=== PATIENT | female | born 1970 | race Caucasian/White ===

== ENCOUNTER → 2017-12-29 15:49 | Outpatient (CLI) | payer OTHER, SELFPAY ==
[2017-12-29 18:33] LABS: Follicle Stimulating Hormone 6.5 mIU/mL; Thyroid Stim Hormone (TSH) 1.08 uIU/mL (0.358-3.74)
[2018-01-01 08:30] LABS: HPV Reflexed? NOT INDICATED
== END ==
PROVIDERS: Visit Provider Obstetrics & Gynecology
DX: N91.2 Amenorrhea, unspecified (principal); Z12.4 Encounter for screening for malignant neoplasm of cervix
CPT/HCPCS: 36415; 83001; 84443; 88175; G0145

== ENCOUNTER → 2019-12-14 | Outpatient (CLI) | payer OTHER, SELFPAY ==
[2016-04-11 12:42] VITALS: BMI 28.3
[2019-12-21 04:52] LABS: HPV APTIMA, High Risk Negative (Negative); HPV Reflexed? NOT INDICATED
== END | disposition home or self-care (01) ==
LOC: LABSPEC 16:37
PROVIDERS: PCP Student in an Organized Health Care Education/Training Program; Visit Provider Student in an Organized Health Care Education/Training Program
DX: Z12.4 Encounter for screening for malignant neoplasm of cervix (principal)
CPT/HCPCS: 88175; G0145

== ENCOUNTER 2023-01-07 11:46 | Observation (INO) | payer OTHER, SELFPAY ==
[2023-01-07] VITALS (7 sets, daily range): BP systolic 118–163; BP diastolic 72–92; PULSE 66–83; RESP 16–20; TEMP 35.9–36.9; O2SAT 97–100; BMI 32.2; BMI 30.9
--- NOTE | 2023-01-07 13:11 | CT_ITS ---
STUDY: CT BRAIN WITHOUT CONTRAST REASON FOR EXAM: Female, 52 years old. JONES, elevated BP RADIATION DOSAGE (If Supplied By Facility): CTDIvol = ( 44.99 ) mGy, DLP = ( 762.36 ) mGycm TECHNIQUE: Transaxial CT imaging of the brain was performed without administration of intravenous contrast material. Individualized dose optimization techniques were used for this CT. COMPARISON: Comparison is made with prior study April 11, 2016. FINDINGS: Normal soft tissue structures. Normal calvarium. Normal size ventricles and extra-axial spaces for the patient''s age. Normal white matter tracts of the cerebral hemispheres. Normal basal ganglia and thalami. Normal brainstem. Normal cerebellum. There is no intracranial hemorrhage. There are no findings of an acute ischemic infarction. Atherosclerotic plaque formation of the cavernous portions of the internal carotid arteries bilaterally. Normal visualized paranasal sinuses. CT/Brain/Head without Contrast IMPRESSION: Normal unenhanced CT scan of the brain. Electronically Signed: Marcio Montalvo MD at 14:35 EDT ,
--- NOTE | 2023-01-07 13:12 | EKG12_ITS ---
Test Reason : HTN Blood Pressure : / mmHG Vent. Rate : 083 BPM Atrial Rate : 083 BPM P-R Int : 142 ms QRS Dur : 072 ms QT Int : 360 ms P-R-T Axes : 057 036 -05 degrees QTc Int : 423 ms Normal sinus rhythm T wave abnormality, consider inferior ischemia Abnormal ECG Confirmed by FAINA GLOVER, MARIBELL ([id number]), supervising editor news reel ANNMARIE BARRAGAN ([id number]) on 01/14/2023 10:10:18 AM Referred By: Confirmed By:EZIO EISENBERG MD
[2023-01-07 13:37] LABS: Absolute Lymphocyte Count 2.18 X10^3/uL (0.83-4.51); Basophil# 0.05 X10^3/uL; Basophil% 0.7 % (0-1); Eosinophil# 0.11 X10^3/uL; Eosinophils% 1.6 % (0-5); Hematocrit 42.3 % (37-47); Hemoglobin 13.9 g/dL (12.0-15.0); Lymphocyte # 2.18 X10^3/ul (0.83-4.51); Lymphocyte % 31.2 % (19-41); Mean Corp Hgb Conc 32.9 g/dL (32-36); Mean Corpuscular Hgb 26.2 pg (27.0-32.0); Mean Corpuscular Volume 79.7 fL (81-99); Mean Platelet Vol. 10.3 fl (6.2-12.0); Monocyte% 8.6 % (0-10); NRBC Flagged by Analyzer 0 % (0-5); Neutrophil # 4.03 X10^3/uL (2.7-7.7); Neutrophil % 57.6 % (47-70); Platelet Count 315 K/mm3 (150-450); RBC Distribution Width SD 40.4 fl (35.1-43.9); Red Blood Count 5.31 M/mm3 (4.2-5.4)
[2023-01-07 13:54] LABS: Anion Gap 3 (5-15); BUN 16 mg/dL (7-18); BUN/Creat Ratio 14.5 RATIO (10-20); Calcium,Total 9.3 mg/dL (8.5-10.1); Chloride 106 mmol/L (98-107); EST Glomerular Filtration Rate 55 mL/min (>60); Est Glom Filt Rate - Afr Amer 67 mL/min (>60); Glucose 102 mg/dL (74-106); Potassium 3.6 mmol/L (3.5-5.1); Sodium Level 137 mmol/L (136-145); Troponin-I HS 80 pg/mL (3.0-54.0)
--- NOTE | 2023-01-07 14:16 | RAD_ITS ---
STUDY: X-RAY CHEST REASON FOR EXAM: Female, 52 years old. Elevated BP TECHNIQUE: Single AP portable view of the chest. COMPARISON: None. FINDINGS: EKG electrodes are seen. The lungs are clear and expanded. Scattered calcified granulomas. There is no demonstrated pleural abnormality. Normal size heart. Normal mediastinum and adelaida. Normal visualized pulmonary arteries. There is atherosclerotic calcification of the aortic arch with tortuosity. There are degenerative changes of the visualized thoracic spine. Normal visualized ribs, clavicles, and shoulders. There is no demonstrated abnormality of the visualized soft tissue structures of the upper abdomen. RAD/Chest 1 View (Portable) IMPRESSION: No acute abnormality is seen. Electronically Signed: Marcio Montalvo MD at 15:01 EDT ,
[2023-01-07] MEDS: amLODIPine 5 MG Tablet PO (14:47)
[2023-01-07] MEDS: Aspirin 325 MG Tablet PO (14:47)
--- NOTE | 2023-01-07 15:08 | HP.PCM.HOS_ITS ---
HPI - General General Date of Admission: 01/07/23 Date of Service: 01/07/23 Chief Complaint: Elevated BP, headaches, vision changes, near syncope. HPI Narrative The patient is a 52 y/o F w/ PMHx: Hypertension who presents to the [facility] ED on with history of ongoing left-sided sharp stabbing headache rated 10 out of 10 in severity noted to be pretty continuous over the last 3 days with no sound or light sensitivity with history of chronic headaches prior to start of hypertensive regimen but she is since improved and this is the first time she is really had headaches since with associated lightheadedness, dizziness in addition to shortness of breath even at rest with onset at approximately 7:30 AM on day of presentation transient left-sided vision blurring which lasted approximately 30 to 45 minutes and then resolved but given the symptoms and BP check at home which was elevated per her at 148/85 prompted ED evaluation. Work- up in the ED included CBC with WBC 7.0, hemoglobin 13.9, platelet 315 without marked shift, BMP with BUN/creatinine 16/1.0, troponin initial 80, CT of the brain with no acute intracranial findings, chest x-ray with no acute cardiopulmonary findings, EKG SR with no acute evidence of ischemia. In the ED patient ministered a full-strength aspirin therapy and Norvasc 5 mg p.o. x1. [facility] Medical History (Updated 01/07/23 @ 20:[address] Cheri Munroe MD) Hypertension Obesity Home Medications lisinopril 10 mg tablet (Prinivil) 10 mg PO DAILY 04/11/16 [History Last Taken 04/11/16 10] Allergy/AdvReac Type Severity Reaction Status Date / Time aspirin AdvReac Upset Verified 01/07/23 11:46 Stomach Family History (Updated 01/07/23 @ 20:[address] Cheri Munroe MD) Mother Hypertension Cancer Father History of GI bleed Other Heart disease Surgical History (Updated 01/07/23 @ 20:[address] Cheri Munroe MD) Status post left breast lumpectomy Social History (Updated 01/07/23 @ 20:[address] Cheri Munroe MD) household members: spouse Smoking Status: Never smoker alcohol intake: current alcohol intake frequency: holidays/special occasions only substance use type: does not use ROS ROS Narrative Admission Review of Systems: CONSTITUTIONAL: No weight loss, fever, chills, + weakness or fatigue. HEENT: + Transient left-sided vision blurring, left-sided headache. Eyes: No visual loss, double vision or yellow sclerae. Ears, Nose, Throat: No hearing loss, sneezing, congestion, runny nose or sore throat. SKIN: No rash or itching, lesions, wounds. CARDIOVASCULAR: + Lightheadedness, dizziness. No chest pain, chest pressure or chest discomfort, palpitations, edema, orthopnea, syncopal events. RESPIRATORY: + shortness of breath. No cough or sputum, wheezing, hemoptysis. GASTROINTESTINAL: No anorexia, nausea, vomiting or diarrhea, abdominal pain, melena, BRBPR. GENITOURINARY: No dysuria, frequency, urgency or retention. NEUROLOGICAL:+ headache, dizziness, transient left eye vision blurring. Syncope, paralysis, ataxia, numbness or tingling in the extremities, focal weakness, change in bowel or bladder control, seizure. MUSCULOSKELETAL: No muscle, back pain, joint pain or stiffness. HEMATOLOGIC: No anemia, bleeding or bruising. LYMPHATICS: No enlarged nodes. No history of splenectomy. PSYCHIATRIC: No history of depression or anxiety. ENDOCRINOLOGIC: No reports of sweating, cold or heat intolerance. No polyuria or polydipsia. ALLERGIES: No history of asthma, hives, eczema or rhinitis. Vital Signs Vital Signs Vital Signs: 01/07/23 11:46 01/07/23 13:31 01/07/23 13:34 Temperature 96.7 F L Temperature Source Temporal Pulse Rate 83 78 Respiratory Rate 18 Respiratory Effort Normal Non-Labored Respiratory Pattern Normal Blood Pressure 163/92 H 144/85 H Blood Pressure Mean 115 104 Pulse Ox 100 Oxygen Delivery Method Room Air 01/07/23 15:00 Temperature Temperature Source Pulse Rate 73 Respiratory Rate 18 Respiratory Effort Respiratory Pattern Blood Pressure 133/83 H Blood Pressure Mean 99 Pulse Ox 100 Oxygen Delivery Method Room Air Physical Exam Narrative Physical Examination: General: Awake, alert, oriented x 3 and cooperative, seated upright in the ED bed in no apparent distress, notes continued resolution of prior vision changes. Skin: Normal color, normal turgor, no icterus, no cyanosis. HEENT: AT/NC, EOMI, PERRLA, mildly dry MM, no carotid bruits or JVD noted. Lungs: CTA bilaterally, moderate effort, mild decrease BL bases, no rales, ronchi or wheezing. Heart: Regular rate and rhythm; no gallop, rub audible. Abdomen: Soft, obese, NTTP, ND, normal BS, no HSM. Extremities: No cyanosis, clubbing, or edema. Neurological: Patient awake, alert, oriented as noted, cognitive function intact; pupils equally reactive to light and accommodation, cranial nerves II- XII grossly normal, moving all 4 extremities, no focal deficits, strength preserved, vision currently appropriate bilaterally, HTS/FTN appropriate, negative babinski. Psychiatric: Affect appears fatigued otherwise normal, no acute evidence of depressive or anxiety feelings. Results Lab / Micro Data 01/07/23 13:30 01/07/23 13:30 Labs: Laboratory Results - last 24 hr 01/07/23 13:30: WBC 7.0, RBC 5.31, Hgb 13.9, Hct 42.3, MCV 79.7 L, MCH 26.2 L, MCHC 32.9, RDW Std Deviation 40.4, RDW Coeff of Evelyn 14.0, Plt Count 315, MPV 10.3, Immature Gran % (Auto) 0.300, Neut % (Auto) 57.6, Lymph % (Auto) 31.2, Dare % (Auto) 8.6, Eos % (Auto) 1.6, Baso % (Auto) 0.7, Absolute Neuts (auto) 4.0, Absolute Lymphs (auto) 2.18, Nucleated RBC % 0, Sodium 137, Potassium 3.6, Chloride 106, Carbon Dioxide 28.0, Anion Gap 3 L, BUN 16, Creatinine 1.10 H, Est GFR (MDRD) Af Amer 67, Est GFR (MDRD) Non-Af 55 L, BUN/Creatinine Ratio 14.5, Glucose 102, Calcium 9.3, Troponin I High Sens 80 H Radiology Impression Brain CT 01/07/23 13:11 IMPRESSION: Normal unenhanced CT scan of the brain. Electronically Signed: Marcio Montalvo MD at 14:35 EDT , Chest X-Ray 01/07/23 14:16 IMPRESSION: No acute abnormality is seen. Electronically Signed: Marcio Montalvo MD at 15:01 EDT , Assessment & Plan Assessment/Plan (1) Vision changes: PLAN: Plan The patient is a 52 y/o F w/ PMHx: Hypertension who presents to the [facility] ED on 01/07/23 with history of ongoing left-sided sharp stabbing headache rated 10 out of 10 in severity noted to be pretty continuous over the last 3 days with no sound or light sensitivity with history of chronic headaches prior to start of hypertensive regimen but she is since improved and this is the first time she is really had headaches since with associated lightheadedness, dizziness in addition to shortness of breath even at rest with onset at approximately 7:30 AM on day of presentation transient left-sided vision blurring which lasted approximately 30 to 45 minutes and then resolved but given the symptoms and BP check at home which was elevated per her at 148/85 prompted ED evaluation. #1. Transient vision changes concerning for TIA, resolved: Will admit to PCU, will obtain MRI Brain, will obtain CTA head and Neck, ECHO, PT/OT/Speech/Nutrition evaluation per protocol. Given current resolution of symptoms will continue hypertensive regimen, maintain on asa, at least moderate dose statin w/ AM FLP, fall precautions. Mag, TSH, FLP, HgbA1c requested. Maintain on fall and aspiration precautions. Once work-up obtained low threshold to obtain Neurology consultation. #2. Recent lightheadedness, dyspnea, dizziness, elevated blood pressures above baseline with associated headache and has noted transient vision changes, hypertensive urgency with indeterminate cardiac enzyme: EKG in ED SR with no acute evidence of ischemia, CXR w/ no acute cardiopulmonary finding, initial trop 80. Will place on a monitored bed to assure no acute myocardial infarction with serial cardiac enzymes and EKGs. Mag pending. FLP in AM. Will continue to trend enzymes and if worsens/rises would opt to consult cardiology. ECHO requested. BNP ordered. To be cautious will place on heparin drip until trending noted and if his artery reaches smooth or decreases may de-escalate off. ASA, NG, morphine. #3. Suspected acute mild acute renal insufficiency associated with #1, #2: Admission BUN/creatinine 16/1.10, GFR 55, previously was in the 70 range however unclear if this was an acute situation, will judiciously hydrate and repeat CMP in AM. #4. Obesity: Weight loss and lifestyle changes encouraged. #5. DVT prophylaxis: Heparin drip as noted. #6. CODE STATUS: Full Code. Charges/Coding Visit Charges Inpatient E&M: 10560 Init Hosp L3
--- NOTE | 2023-01-07 15:38 | EDS_ITS ---
HPI History of Present Illness Chief Complaint: Hypertension [facility] Medical History (Updated 01/07/23 @ 13:33 by Claudia Fortune) Hypertension Home Medications lisinopril 10 mg tablet (Prinivil) 10 mg PO DAILY 04/11/16 [History Last Taken 04/11/16 10] Allergy/AdvReac Type Severity Reaction Status Date / Time aspirin AdvReac Upset Verified 01/07/23 11:46 Stomach Social History Smoking Status: Never smoker EXAM Physical Exam Const Vital Signs: 01/07/23 11:46 01/07/23 13:31 01/07/23 13:34 Temperature 96.7 F L Temperature Source Temporal Pulse Rate 83 78 Respiratory Rate 18 Respiratory Effort Normal Non-Labored Respiratory Pattern Normal Blood Pressure 163/92 H 144/85 H Blood Pressure Mean 115 104 Pulse Ox 100 Oxygen Delivery Method Room Air 01/07/23 15:00 Temperature Temperature Source Pulse Rate 73 Respiratory Rate 18 Respiratory Effort Respiratory Pattern Blood Pressure 133/83 H Blood Pressure Mean 99 Pulse Ox 100 Oxygen Delivery Method Room Air MDM MDM MDM Narrative Medical decision making narrative: HISTORY OF PRESENT ILLNESS: 52-year-old female here with headache and visual changes notes elevated blood pressure. States she takes 20 mg of lisinopril and is taking a total of 40 mg today. Patient denies sudden onset or thunderclap headache, denies maximal intensity within 1 minute, vomiting, neck pain, stiffness, changes in vision, fever, history malignancy, syncope, or seizures associated with headache. No chest pain, no shortness of breath. No urinary complaints. REVIEW OF SYSTEMS: Pertinent positives: Headache, visual disturbance Pertinent negatives: Chest pain, shortness of breath PHYSICAL EXAM: Nursing triage notes reviewed, Vital signs reviewed Constitutional: please see mdm HENT: MMM Eyes: Pupils equal round and reactive to light, Extraocular muscles intact, visual subramanian intact, Neck: No stridor, no JVD, full neck ROM Lungs: Clear to auscultation, No wheezing or rales. No increased work of breathing, no conversational dyspnea, no accessory muscle use, no nasal flaring. No respiratory distress noted Heart: Regular rate and rhythm, No murmurs, No rubs and No gallops, 2+ distal pulses (radial, femoral, posterior tibial) in all extremities Abdomen: Soft, there is no tenderness, rigidity, rebound or guarding, no obvious peritoneal signs, no palpable pulsatile abdominal masses, no auscultated abdominal bruit : No CVAT Extremities: No edema Neuro: No focal neurological deficits, cranial nerves II through XII intact, 5/5 strength in all extremities. Intact sensation to light touch in all extremities, 2+ reflexes bilateral patella tendons. Normal gait. No ataxia. Skin: No rash or lesions noted MEDICAL DECISION MAKING: Chief Complaint: Headache External records reviewed: No recent ED visits or hospitalizations Factors affecting care: Hypertension Social determinants of health: none History obtained from others: The patient's Consults: Internal medicine (Dr. Munroe) ALL IMAGES (IF OBTAINED) HAVE BEEN PERSONALLY REVIEWED AND INTERPRETED BY MYSELF. EKG with normal sinus rhythm, normal axis, normal intervals, no STEMI Initial troponin elevated concerning for myocardial ischemia CBC without leukocytosis, severe anemia, no thrombocytopenia. BMP without evidence of significant electrolyte abnormalities, no anion gap, no acute kidney injury. I have personally reviewed the patient's chest x-ray. Chest x-ray is unremarkable for pulmonary edema, pneumothorax, pneumonia or focal cardiopulmonary abnormality. CT scan of the head showed no evidence of intracranial abnormality MDM Narrative: Patient was initially mildly hypertensive. She had no focal neurologic deficits. Concern for endorgan damage given report of high blood pressure. Obtained a broad lab and imaging work-up I considered the following differential diagnosis: [Kidney dysfunction ICH, ACS, Labs images remarkable for elevated troponin. EKG was nonischemic. Patient was given aspirin for mortality benefit Norvasc for blood pressure control admitted for respiratory modification and further evaluation of elevated troponin The patient and/or family, caregivers express understanding. The patient and/or family, caregivers agrees with the plan. Shared decision making: I will have a discussion with the patient and or visitors regarding risk/benefits of further testing or admission. They will be made aware of of the risk/benefits inherent in this decision they will be given the opportunity to voice understanding. Total critical care time today provided was at least 0 minutes. This excludes separately billable procedures. Critical care time (if documented) is secondary to the patient having high probability of clinically significant/life threatening deterioration in the patient's condition which required my urgent intervention. Impression: 1. Hypertensive urgency 2. Elevated troponin 3. History of hypertension Dispo: Admit to floor Lab Data Labs: Laboratory Results - last 24 hr 01/07/23 13:30 WBC 7.0 RBC 5.31 Hgb 13.9 Hct 42.3 MCV 79.7 L MCH 26.2 L MCHC 32.9 RDW Std Deviation 40.4 RDW Coeff of Evelyn 14.0 Plt Count 315 MPV 10.3 Immature Gran % (Auto) 0.300 Neut % (Auto) 57.6 Lymph % (Auto) 31.2 [place] % (Auto) 8.6 Eos % (Auto) 1.6 Baso % (Auto) 0.7 Absolute Neuts (auto) 4.0 Absolute Lymphs (auto) 2.18 Nucleated RBC % 0 Sodium 137 Potassium 3.6 Chloride 106 Carbon Dioxide 28.0 Anion Gap 3 L BUN 16 Creatinine 1.10 H Est GFR (MDRD) Af Amer 67 Est GFR (MDRD) Non-Af 55 L BUN/Creatinine Ratio 14.5 Glucose 102 Calcium 9.3 Troponin I High Sens 80 H Radiography Diagnostic Testing: Clinical Impression(s) from Imaging Studies Brain CT 01/07/23 13:11 IMPRESSION: Normal unenhanced CT scan of the brain. Electronically Signed: Marcio Montalvo MD at 14:35 EDT , Chest X-Ray 01/07/23 14:16 IMPRESSION: No acute abnormality is seen. Electronically Signed: Marcio Montalvo MD at 15:01 EDT , Discharge Plan Triage Chief Complaint: Hypertension Other Complaint: Headache ED Provider: Tito Lobo Dx/Rx/DC Orders Prescriptions: No Action lisinopril [Prinivil] 10 MG tablet 10 mg PO DAILY Primary Care Provider: Fredrick Fleming Referrals: Fredrick Fleming DO [Primary Care Provider] - Disposition Disposition: [facility]
--- NOTE | 2023-01-07 16:42 | CT_ITS ---
We are attempting to reach an attending provider to discuss findings. An addendum with communication details will be sent when the communication is complete. EXAM: CT ANGIOGRAPHY HEAD AND NECK WITH INTRAVENOUS CONTRAST CLINICAL INDICATION: Neuro deficit, acute, stroke suspected TECHNIQUE: [place] [facility] [place]/head and neck CT angiography protocol performed with intravenous contrast. This CT exam was performed using one or more of the following dose reduction techniques: automated exposure control, adjustment of the mA and/or kV according to patient size, and/or use of iterative reconstruction technique. MIP reconstructed images were created and reviewed. CONTRAST: IV 100mL [id number] COMPARISON: No relevant prior studies available. FINDINGS: HEAD: RIGHT ANTERIOR CEREBRAL ARTERY: Unremarkable. No significant stenosis at the visualized segments. Hypoplastic or aplastic anterior communicating artery. No aneurysm. RIGHT MIDDLE CEREBRAL ARTERY: Unremarkable. No significant stenosis at the visualized segments. No aneurysm. RIGHT POSTERIOR CEREBRAL ARTERY: origin of the right posterior cerebral artery with absent P1 segment and robust right posterior communicating artery. RIGHT INTRACRANIAL INTERNAL CAROTID ARTERY: Unremarkable. No significant stenosis. No dissection or occlusion. RIGHT INTRACRANIAL VERTEBRAL ARTERY: Unremarkable. No significant stenosis. No dissection or occlusion. LEFT ANTERIOR CEREBRAL ARTERY: Unremarkable. No significant stenosis at the visualized segments. No aneurysm. LEFT MIDDLE CEREBRAL ARTERY: Unremarkable. No significant stenosis at the visualized segments. No aneurysm. LEFT POSTERIOR CEREBRAL ARTERY: origin of the left posterior cerebral artery with absent P1 segment and robust left posterior communicating artery. LEFT INTRACRANIAL INTERNAL CAROTID ARTERY: Unremarkable. No significant stenosis. No dissection or occlusion. LEFT INTRACRANIAL VERTEBRAL ARTERY: Unremarkable. No significant stenosis. No dissection or occlusion. BASILAR ARTERY: Unremarkable. No significant stenosis. No aneurysm. OTHER VASCULATURE: No vascular malformation. NECK: RIGHT COMMON CAROTID ARTERY: Unremarkable. No significant stenosis. No dissection or occlusion. RIGHT EXTRACRANIAL INTERNAL CAROTID ARTERY: Unremarkable. No significant stenosis. No dissection or occlusion. RIGHT EXTERNAL CAROTID ARTERY: Unremarkable. No occlusion. RIGHT EXTRACRANIAL VERTEBRAL ARTERY: Unremarkable. No significant stenosis. No dissection or occlusion. LEFT COMMON CAROTID ARTERY: Unremarkable. No significant stenosis. No dissection or occlusion. LEFT EXTRACRANIAL INTERNAL CAROTID ARTERY: Unremarkable. No significant stenosis. No dissection or occlusion. LEFT EXTERNAL CAROTID ARTERY: Unremarkable. No occlusion. LEFT EXTRACRANIAL VERTEBRAL ARTERY: Unremarkable. No significant stenosis. No dissection or occlusion. BRACHIOCEPHALIC AND SUBCLAVIAN ARTERIES: Unremarkable as visualized. No occlusion or significant stenosis. LUNG APICES: Unremarkable as visualized. HEAD and NECK: BONES/JOINTS: Unremarkable. No discrete lytic or blastic abnormalities. SOFT TISSUES: Unremarkable. CAROTID STENOSIS REFERENCE USING NASCET CRITERIA: % ICA stenosis = (1 - narrowest ICA diameter/diameter of distal cervical ICA) x 100. Mild - <50% stenosis. Moderate - 50-69% stenosis. Severe - 70-94% stenosis. Near occlusion - 95-99% stenosis. Occluded - 100% stenosis. CT/STROKE CTA Head AND Neck W/Con IMPRESSION: No acute findings in the arteries of the head and neck. Electronically Signed: Winsome Khan MD at 17:29 EDT Reading Location ID and State: [id number] / Tel , Service support ,
[2023-01-07 16:58] LABS: International Normalized Ratio 0.9; Prothrombin Time (Protime)PT. 12.2 SECONDS (11.7-14.9)
[2023-01-07 17:04] LABS: Magnesium 2.3 mg/dL (1.6-2.6)
[2023-01-07 17:08] LABS: BNP,B-Type NATRIURETIC PEPTIDE 15.6 pg/mL (0-100)
--- NOTE | 2023-01-07 18:58 | MRI_ITS ---
EXAM: MR HEAD WITHOUT INTRAVENOUS CONTRAST CLINICAL INDICATION: CVA, L SIDED STABBING HEADACHE, VISUAL CHANGE, INCREASED BP, L BLURRED VISION TECHNIQUE: Multiplanar and multisequence MR images of the brain were obtained without intravenous contrast. COMPARISON: CT brain 01/07/2023 FINDINGS: BRAIN AND EXTRA-AXIAL SPACES: Increased T2 signal intensity within the cerebral white matter suggestive of chronic microvascular change. No intra- or extra-axial hemorrhage. No evidence of acute infarct. No intracranial mass or mass effect. There is preservation of the morris/white matter interface. Posterior fossa structures are unremarkable. Ventricles are appropriate for age. No hydrocephalus. Basal cisterns are patent. SELLA: Normal. Normal sella turcica, pituitary gland, infundibular stalk, optic chiasm and hypothalamus. AUDITORY SYSTEM: Normal. The internal auditory canals are patent. BONES/JOINTS: Intact calvarium. SINUSES: Unremarkable as visualized. Clear. MASTOID AIR CELLS: Unremarkable as visualized. Clear. ORBITS: Unremarkable as visualized. Both globes, extraocular muscles, optic nerves and retrobulbar fat appear unremarkable. VASCULATURE: Unremarkable as visualized. Normal flow voids in the major intracranial circulation. MRI/Brain without Contrast IMPRESSION: No acute intracranial abnormality. Electronically Signed: Pelon Perez MD at 13:23 EDT ,
--- NOTE | 2023-01-07 18:58 | ECHOD_ITS ---
Reason For Study: TIA/CVA Procedure This was a 2D Doppler, Color Flow transthoracic echocardiogram. Exam performed portable in patient room. Left Ventricle Normal LV size. The estimated ejection fraction is 70 %. No evidence for diastolic dysfunction. No regional wall motion abnormalities noted. Right Ventricle Normal RV size. Normal systolic function. Atria Normal left atrium. Normal right atrium. No doppler evidence for ASD. Bubble contrast study negative for right to left interatrial shunt. Mitral Valve There is no mitral valve stenosis. No mitral valve insufficiency. Tricuspid Valve There is no tricuspid stenosis. Trivial tricuspid valve insufficiency. Pulmonary artery systolic pressure is 35-40 mmHg. Aortic Valve Trisinus/trileaflet aortic valve. There is no aortic stenosis. No aortic valve insufficiency. Pulmonic Valve There is no pulmonic valvular stenosis. No pulmonic valve insufficiency. Great Vessels Normal aortic root. Pericardium/Pleural No pericardial effusion. Medication Performed a rapid injection of agitated mix of 9 cc saline and 1cc air to assess for atrial septal defect. MMode/2D Measurements & Calculations LVIDd: 3.9 cm IVSd: 0.73 cm Ao root diam: 3.2 cm LVIDs: 2.7 cm LVPWd: 0.93 cm FS: 31.5 % LAV(MOD-bp): 25.3 ml LVAd ap4: 16.1 cm2 SV(MOD-sp4): 20.8 ml LAV(MOD-bp) Indexed: 15.3 ml/m2 LVLd ap4: 6.6 cm LAV(MOD-sp2): 23.8 ml EDV(MOD-sp4): 32.6 ml LAV(MOD-sp4): 27.2 ml EDV(sp4-el): 33.1 ml LVAs ap4: 8.0 cm2 LVLs ap4: 5.2 cm ESV(MOD-sp4): 11.8 ml ESV(sp4-el): 10.6 ml EF(MOD-sp4): 63.7 % EF(sp4-el): 68.1 % SV(sp4-el): 22.5 ml LA A4 area: 12.9 cm2 LA dimension(2D): 3.3 cm RA A4 area: 15.5 cm2 TAPSE: 2.6 cm Time Measurements MV dec time: 0.19 sec Doppler Measurements & Calculations MV E max steven: 81.1 cm/sec Lat Peak E' Steven: 14.5 cm/sec Med Peak E' Steven: 12.3 cm/sec MV A max steven: 67.8 cm/sec E/E' lat: 5.6 E/E' med: 6.6 MV E/A: 1.2 MV V2 max: 91.8 cm/sec MV dec slope: 438.3 cm/sec2 Ao V2 max: 152.4 cm/sec MV max P.4 mmHg Ao max P.3 mmHg MV V2 mean: 54.1 cm/sec Ao V2 mean: 103.3 cm/sec MV mean P.3 mmHg Ao mean P.0 mmHg MV V2 VTI: 30.6 cm Ao V2 VTI: 31.3 cm AV (velocity ratio): 0.85 LV V1 max: 126.9 cm/sec PA V2 max: 101.5 cm/sec TR max steven: 290.7 cm/sec LV V1 max P.4 mmHg PA V2 mean: 69.6 cm/sec TR max P.8 mmHg LV V1 mean P.6 mmHg LV V1 mean: 88.7 cm/sec LV V1 VTI: 26.5 cm ECHO/Echo Complete Interpretation Summary The estimated ejection fraction is 70 %. No evidence for diastolic dysfunction. Ordering Physician: Cheri Munroe Referring Physician: ASHLEY STOUT Performed By: Kaity Mcdermott RCS
[2023-01-07] MEDS: Heparin Injection (Vial) 5,000 UNIT/ML VIAL 5000 UNIT IV (20:04)
[2023-01-07] MEDS: HEPARIN/D5w 25,000 UNITS 25,000 UNITS/250 ML IV.SOLN. 11 UNITS CONT INF (20:06)
[2023-01-07] MEDS: 0.9% Normal Saline (1000mL) 1,000 ML 100 ML IV (21:46)
[2023-01-07] MEDS: Famotidine 20 MG Tablet PO (21:50)
[2023-01-07] MEDS: Atorvastatin Calcium 40 MG Tablet PO (21:50)
[2023-01-07 21:52] LABS: Troponin-I HS 68 pg/mL (3.0-54.0)
[2023-01-08] VITALS (8 sets, daily range): BP systolic 103–129; BP diastolic 61–78; PULSE 62–76; RESP 14–18; TEMP 36.6–36.8; O2SAT 96–99; BMI 30.9; BMI 31.0
[2023-01-08 00:23] LABS: Troponin-I HS 73 pg/mL (3.0-54.0)
[2023-01-08 04:00] LABS: Absolute Lymphocyte Count 3.11 X10^3/uL (0.83-4.51); Absolute Neutrophil Count 3.3 X10^3/uL (2.0-7.7); Basophil# 0.05 X10^3/uL; Basophil% 0.7 % (0-1); Eosinophil# 0.13 X10^3/uL; Eosinophils% 1.8 % (0-5); Hematocrit 41.2 % (37-47); Hemoglobin 13.4 g/dL (12.0-15.0); Lymphocyte # 3.11 X10^3/ul (0.83-4.51); Lymphocyte % 43.6 % (19-41); Mean Corp Hgb Conc 32.5 g/dL (32-36); Mean Corpuscular Hgb 25.7 pg (27.0-32.0); Mean Corpuscular Volume 78.9 fL (81-99); Monocyte# 0.56 X10^3/uL; Monocyte% 7.9 % (0-10); NRBC Flagged by Analyzer 0 % (0-5); Neutrophil # 3.26 X10^3/uL (2.7-7.7); Neutrophil % 45.7 % (47-70); Platelet Count 271 K/mm3 (150-450); RBC Distribution Width CV 13.8 % (11.6-14.6); RBC Distribution Width SD 39.3 fl (35.1-43.9); Red Blood Count 5.22 M/mm3 (4.2-5.4); White Blood Count 7.1 K/mm3 (4.4-11.0)
[2023-01-08 04:18] LABS: Troponin-I HS 76 pg/mL (3.0-54.0)
[2023-01-08 04:21] LABS: Partial Thromboplast Time 210.6 Seconds (24.1-36.2)
[2023-01-08 04:47] LABS: ALB/GLOB Ratio 0.8 RATIO (0.9-2.4); AST(SGOT) 21 U/L (15-37); Alanine Aminotransfer ALT/SGPT 38 U/L (13-56); Albumin, Serum 3.3 g/dL (3.2-5.0); Alkaline Phosphatase 100 U/L (45-117); Anion Gap 5 (5-15); BUN 13 mg/dL (7-18); BUN/Creat Ratio 18.3 RATIO (10-20); Chloride 107 mmol/L (98-107); Cholesterol 155 mg/dL (200); Creatinine, Serum 0.71 mg/dL (0.55-1.02); EST Glomerular Filtration Rate 91 mL/min (>60); Est Glom Filt Rate - Afr Amer 111 mL/min (>60); Estimated Creatinine Clearance 101.84 ml/min; Globulin 4.4 g/dL (2.2-4.2); Glucose 120 mg/dL (74-106); High Density Lipoprotein 74 mg/dL; Protein, Total 7.7 g/dL (6.4-8.2); Sodium Level 139 mmol/L (136-145); Thyroid Stim Hormone (TSH) 1.36 uIU/mL (0.358-3.74); Triglycerides 50 mg/dL; Very Low Density Lipoprotein 10 mg/dL (5-40)
[2023-01-08] MEDS: Aspirin 81 MG TAB.CHEW PO (08:20)
[2023-01-08] MEDS: Potassium Chloride Oral Tablet 20 MEQ 60 MEQ PO (08:20)
[2023-01-08] MEDS: Famotidine 20 MG Tablet PO ×2 (08:20→22:36)
[2023-01-08 09:31] LABS: Hemoglobin A1c 5.9 % (3.8-5.6)
--- NOTE | 2023-01-08 12:45 | PN_ITS ---
Subjective Subjective Patient seen and examined. She feels much better today. Her headache has resolved and she denies any shortness of breath, palpitations, dizziness, nausea, vomiting or any other symptoms. Review of systems is otherwise negative. BP has improved. Objective Data Objective Data Vital Signs: Vital Signs Temp Pulse Resp BP Pulse Ox O2 Del Method 98.0 F 65 16 107/63 98 Room Air 01/08/23 11:30 01/08/23 11:30 01/08/23 11:30 01/08/23 11:30 01/08/23 11:30 01/08/23 11:30 Oxygen Delivery Method Room Air Weight: 153 lb 10.595 oz Body Mass Index (BMI) 31.0 Intake & Output: Intake and Output for Last 24 Hours 01/06/23 01/07/23 01/08/23 23:59 23:59 23:59 Intake Total 1250 / 1250 Output Total 0 / 0 Balance 1250 / 1250 Lab / Micro Data 01/08/23 03:39 01/08/23 03:39 Labs: Laboratory Results - last 24 hr 01/07/23 13:30: WBC 7.0, RBC 5.31, Hgb 13.9, Hct 42.3, MCV 79.7 L, MCH 26.2 L, MCHC 32.9, RDW Std Deviation 40.4, RDW Coeff of Evelyn 14.0, Plt Count 315, MPV 10.3, Immature Gran % (Auto) 0.300, Neut % (Auto) 57.6, Lymph % (Auto) 31.2, [place] % (Auto) 8.6, Eos % (Auto) 1.6, Baso % (Auto) 0.7, Absolute Neuts (auto) 4.0, Absolute Lymphs (auto) 2.18, Nucleated RBC % 0, PT 12.2, INR 0.9, APTT 21.0 L, Sodium 137, Potassium 3.6, Chloride 106, Carbon Dioxide 28.0, Anion Gap 3 L, BUN 16, Creatinine 1.10 H, Est GFR (MDRD) Af Amer 67, Est GFR (MDRD) Non-Af 55 L , BUN/Creatinine Ratio 14.5, Glucose 102, Calcium 9.3, Magnesium 2.3, Troponin I High Sens 80 H, B-Natriuretic Peptide 15.6 01/07/23 21:22: Troponin I High Sens 68 H 01/07/23 23:45: Troponin I High Sens 73 H 01/08/23 03:39: WBC 7.1, RBC 5.22, Hgb 13.4, Hct 41.2, MCV 78.9 L, MCH 25.7 L, MCHC 32.5, RDW Std Deviation 39.3, RDW Coeff of Evelyn 13.8, Plt Count 271, MPV 10.0, Immature Gran % (Auto) 0.300, Neut % (Auto) 45.7 L, Lymph % (Auto) 43.6 H, [place] % (Auto) 7.9, Eos % (Auto) 1.8, Baso % (Auto) 0.7, Absolute Neuts (auto) 3.3, Absolute Lymphs (auto) 3.11, Nucleated RBC % 0, APTT 210.6 H*, Sodium 139, Potassium 3.0 L, Chloride 107, Carbon Dioxide 27.0, Anion Gap 5, BUN 13, C reatinine 0.71, Estim Creat Clear Calc 101.84, Est GFR (MDRD) Af Amer 111, Est GFR (MDRD) Non-Af 91, BUN/Creatinine Ratio 18.3, Glucose 120 H, Hemoglobin A1c 5.9 H, Calcium 9.0, Total Bilirubin 0.40, AST 21, ALT 38, Alkaline Phosphatase 100, Troponin I High Sens 76 H, Total Protein 7.7, Albumin 3.3, Globulin 4.4 H, Albumin/Globulin Ratio 0.8 L, Triglycerides 50, Cholesterol 155, LDL Cholesterol 71, VLDL Cholesterol 10, HDL Cholesterol 74, TSH 1.36 Radiography Diagnostic Testing: Radiology Impression Brain CT 01/07/23 13:11 IMPRESSION: Normal unenhanced CT scan of the brain. Electronically Signed: Marcio Montalvo MD at 14:35 EDT , Chest X-Ray 01/07/23 14:16 IMPRESSION: No acute abnormality is seen. Electronically Signed: Marcio Montalvo MD at 15:01 EDT , Head/Neck CTA 01/07/23 16:42 IMPRESSION: No acute findings in the arteries of the head and neck. Electronically Signed: Winsome Khan MD at 17:29 EDT Reading Location ID and State: [id number] / Tel , Service support , ADDENDUM: 01/07/23 1749 IMPRESSION: No acute findings in the arteries of the head and neck. N.B. : The above Results were Read Back by Winsome Khan MD to Keith English MD, and understanding confirmed on 01/07/2023 17:42:28 (ET). Electronically Signed: Winsome Khan MD at 17:29 EDT Reading Location ID and State: [place] / Tel , Service support , Echocardiogram 01/07/23 18:58 Interpretation Summary The estimated ejection fraction is 70 %. No evidence for diastolic dysfunction. Ordering Physician: Cheri Munroe Referring Physician: ASHLEY STOUT Performed By: Kaity Mcdermott RCS Physical Exam Const alert, oriented x3 and no apparent distress General Appearance: cooperative HEENT moist oral mucous membranes, oropharynx normal and gingiva normal Eyes PERRL and EOMs intact bilaterally Neck no lymphadenopathy, supple and no JVD Lymph Lymphatic: no lymphadenopathy noted and no lymphedema noted Resp normal respiratory effort, normal air movement and clear to auscultation bilaterally Cardio regular rate, regular rhythm, S1 normal heart sound, S2 normal heart sound and no murmurs GI normal to inspection, nondistended, normoactive bowel sounds, soft to palpation, non-tender and non-distended Extremity normal capillary refill, no clubbing, cyanosis or edema and no calf tenderness Skin General Skin Exam: no breakdown Neuro CN's II-XII intact bilaterally, no focal motor deficits, no sensory deficits noted and deep tendon reflexes 2+ bilaterally Motor Exam: strength 5/5 throughout Psych thought process normal, cooperative and affect normal Appearance: appropriate Assessment & Plan Assessment/Plan (1) Hypertensive emergency: PLAN: Plan #Hypertensive emergency * Resolved. She was admitted with a complaint of markedly elevated blood pressure with left-sided headache and lightheadedness as well as dizziness and shortness of breath. * EKG showed no acute ST changes. CT of the brain showed no acute intracranial pathology. * Patient feels much better. She states she has been taking her blood pressure medications namely lisinopril. However she states she has a very stressful job and has been thinking of quitting due to the amount of stress that she is on then she thinks that may have contributed to her elevated blood pressure. * CT of the head and neck showed no acute hemodynamically significant stenosis * MRI of the brain done and pending. * 2D echo showed EF of 70% with no regional wall motion abnormalities. * BP has improved and is now 107/63. * Currently on IV hydralazine as needed. BP meds on hold due to concerns about cystoscopy of stroke. Was advised. Stroke was ruled out, placed on p.o. amlodipine and lisinopril. * * #Hypokalemia: Potassium is 3. Was replaced. Will trend. #Impaired glucose tolerance: * A1c is 5.9. Patient does not meet the criteria for diabetes permissive criteria for impaired glucose tolerance. * Counseled on DASH diet and get dietitian to certified travel counselor her. * * DVT prophylaxis; SCDs Charges/Coding Visit Charges Inpatient E&M: 70863 Subs Hosp L2
--- NOTE | 2023-01-08 12:53 | CHAPLAIN ---
Type of Pastoral Visit _x__ Initial Visit ___ Follow-up Visit ___ On-call Visit ___ General Patient Visit ___ Spiritual Assessment ___ Family Conference ___ Bereavement ___ Rapid Response ___ Code Blue ___ Other (describe below) Pastoral Care Referral From _x__ Patient ___ Family ___ Nurse ___ Physician ___ Warehouse Picker ___ Child Development Assistant ___ Other (describe below) Sacrament/Intervention _x__ Active listening ___ Anointing ___ Alevism ___ Bereavement ___ Communion ___ Cathy exploration ___ ___ Life review _x__ Prayer ___ Reconciliation ___ Sacrament of Sick _x__ Supportive presence ___ Wedding ___ Other (describe below) Pastoral Comments patient has had testing done and is waiting for an MRI; pt states she had some symptoms and wanted to be sure she was okay; pt is grateful to be receiving good treatment; pt stated her need only as for a prayer; pt grew up in the [place] but is 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
[2023-01-08] MEDS: Atorvastatin Calcium 40 MG Tablet PO (22:36)
[2023-01-08] MEDS: Acetaminophen 325 MG Tablet 650 MG PO (22:36)
[2023-01-09 02:13] VITALS: BMI 31.0
[2023-01-09 03:22] VITALS: BP 95/62; PULSE 60; RESP 14; TEMP 36.6; O2SAT 98
[2023-01-09 04:47] VITALS: BMI 31.4
[2023-01-09 07:40] VITALS: O2SAT 96
[2023-01-09 09:39] VITALS: BMI 31.4
[2023-01-09 10:50] VITALS: BP 121/71; PULSE 72; RESP 16; TEMP 36.6; O2SAT 95
[2023-01-09] MEDS: Famotidine 20 MG Tablet PO (10:53)
[2023-01-09] MEDS: Aspirin 81 MG TAB.CHEW PO (10:53)
--- NOTE | 2023-01-09 14:15 | STRESSREP_ITS ---
Stress Test Report Date: [01/09/2023] Procedure: Exercise tolerance test/imaging study Indications: Chest pain Consent: Per the patient Procedure: The patient exercised on a Horacio protocol for 7 minutes achieving a peak heart rate of 151 bpm (89% predicted maximal heart rate) with a peak blood pressure 158/78 mmHg and a peak MET capacity of 10.1 METs. The baseline ECG demonstrated normal sinus rhythm. The peak exercise ECG demonstrated no significant ischemic changes. EKG during recovery revealed no significant ischemic changes [There were no cardiac dysrhythmias pretest, during exercise, or recovery]. The functional capacity was considered normal for age. There was [no complaint of chest discomfort during exercise or recovery]. The examination was discontinued secondary to achieving target heart rate, dyspnea. Impression: 1. Technically adequate (percent predicted maximal heart rate greater than 85%) exercise tolerance test 2. Stress test is negative for exercise-induced EKG changes of ischemia 3. The test test is negative for exercise-induced chest pain 4. Functional capacity is normal for age 5. Nuclear images pending Myocardial perfusion imaging study: Technique: The patient was injected with 11.4 mCi of technetium 99m Cardiolite and subsequently rest SPECT Cardiolite nuclear imaging was obtained in the horizontal long, vertical long, and short axis views. The patient exercised on a Horacio protocol. Please see above for details. The patient was injected with 36 mCi of technetium 99m Cardiolite and subsequently stress SPECT Cardiolite nuclear imaging was obtained in the horizontal long, vertical long, and short axis views. A gated Cardiolite study at peak stress was obtained. Interpretation: Rest and stress SPECT Cardiolite nuclear imaging status post realignment, normalization, and attenuation correction, demonstrates overall normal myocardial radioisotope uptake. The gated Cardiolite study demonstrates no significant regional wall motion abnormalities. The reported LVEF is greater than 70%. Impression: 1. There is no evidence of significant ischemia or infarction. 2. The gated Cardiolite study reports an LVEF of greater than 70%. This note was generated with Find [employer] software. It may contain incorrect words, spelling, and punctuation that were not noted in checking the note before signing.
--- NOTE | 2023-01-09 14:56 | DCINST_ITS ---
Discharge Instructions Diet Discharge Diet: Low fat / Low cholesterol Activity Discharge Activity: Return to Normal Activity Weight Bearing Status: Weight bearing as tolerated Dressing / Incision Call your doctor if you observe: Fever of 101 or Higher, Shortness of breath, Dizziness, Swelling in the ankles and Chest pain Follow Up Care Test Results: Test results from this visit will be discussed in further detail at your follow- up appointment, if applicable. Discharge Plan Admission Admit Date/Time: 01/07/23 15:09 Primary Reason for Your Visit: hypertension Attending Provider: Arlene Pisano Primary Care Provider: Fredrick Fleming Consulting Providers: Cheri Munroe Instructions Patient Instructions: ED Dizziness or Syncope ... Discharge Orders/Prescriptions Prescriptions: Continued lisinopril [Prinivil] 10 MG tablet 10 mg PO DAILY Referrals / Follow Up: Fredrick Fleming DO [Primary Care Provider] - Within 2 Weeks Disposition Disposition (needs filled in before D/C Order can be placed): Home, Self Care
--- NOTE | 2023-01-09 14:57 | DS.PCM_ITS ---
Providers Date of Admission: 01/07/23 Date of Discharge: 01/09/23 Primary Care Physician: Dr. Fredrick Fleming, DO Reason For Visit: HTN URGENCY, INDETER TROP Diagnosis Discharge Diagnosis (1) Hypertensive emergency: Status: Acute Code(s): I16.1 - Hypertensive emergency Plan #Hypertensive emergency * Resolved. She was admitted with a complaint of markedly elevated blood pressure with left-sided headache and lightheadedness as well as dizziness and shortness of breath. * EKG showed no acute ST changes. CT of the brain showed no acute intracranial pathology. * Patient feels much better. She states she has been taking her blood pressure medications namely lisinopril. However she states she has a very stressful job and has been thinking of quitting due to the amount of stress that she is on then she thinks that may have contributed to her elevated blood pressure. * CT of the head and neck showed no acute hemodynamically significant stenosis * MRI of the brain done and pending. * 2D echo showed EF of 70% with no regional wall motion abnormalities. * BP has improved and is now 107/63. * Currently on IV hydralazine as needed. BP meds on hold due to concerns about cystoscopy of stroke. Was advised. Stroke was ruled out, placed on p.o. amlodipine and lisinopril. * * #Hypokalemia: Potassium is 3. Was replaced. Will trend. #Impaired glucose tolerance: * A1c is 5.9. Patient does not meet the criteria for diabetes permissive criteria for impaired glucose tolerance. * Counseled on DASH diet and get dietitian to safety counselor her. * * DVT prophylaxis; SCDs Medications at Discharge Home Medications lisinopril 10 mg tablet (Prinivil) 10 mg PO DAILY blood pressure 04/11/16 Hospital Course Operations None Procedures 2-D Echocardiogram and Stress test Summary of Care Provided Minutes Spent on Discharge: 50 Hospital Course: Patient is a 52 y/o female with a PMH as utlined who was admitted via the ED on 01/09/2023 iwth a complaitn of left sided stabbing headache which she rated at 10/10. Headache has been continuous for about 3 days prior to admission. He had assisted lightheadedness and dizziness in addition to shortness of breath. Subsequently started having transient left-sided blurring of her vision which lasted about 30 to 45 minutes and then subsequently resolved. On admission blood pressure was elevated at 148/85. CT of the brain showed no acute intracranial pathology. Troponin initially was 80. She was placed on aspirin and amlodipine. EKG showed no acute ST changes. She was admitted and managed for possible TIA. MRI of the brain showed no evidence of stroke. 2D echo showed EF of 70% with regional wall motion abnormalities. A1C was 5.9. Hospital course was also complicated by hypokalemia which was treated. She did have a stress test also done on account of her indeterminate troponins. Stress test was negative and showed no evidence of ischemia. Patient's blood pressure improved while in the hospital. Patient then says she had been under a lot of stress at her workplace and was actually thinking of quitting her work because of the stress that caused her. Due to patient's blood pressure running in the low 100 systolic, she was maintained on her home dose of lisinopril and no new medication was added on. She was discharged home on 01/09/2022. Please follow- up with your primary care doctor within 1 to 2 weeks. Patient seen and examined prior to discharge. She had no active complaints and had an uneventful night. Review of systems otherwise negative. Labs and vitals reviewed. Home medication reviewed and reconciled. Physical Exam Const alert, oriented x3 and no apparent distress General Appearance: cooperative, comfortable and well kempt HEENT normocephalic, head/scalp atraumatic, hearing grossly normal bilaterally, moist oral mucous membranes, oropharynx normal and gingiva normal Mouth: oral and palatal mucosa normal Eyes PERRL and EOMs intact bilaterally Neck no lymphadenopathy, supple and no JVD Lymph Lymphatic: no lymphadenopathy noted and no lymphedema noted Resp normal respiratory effort, normal air movement and clear to auscultation bi laterally Cardio regular rate, regular rhythm, S1 normal heart sound, S2 normal heart sound and no murmurs GI normal to inspection, nondistended, normoactive bowel sounds, soft to palpation, non-tender and non-distended Extremity normal to inspection, full ROM, normal capillary refill, no clubbing, cyanosis or edema and no calf tenderness Skin no rashes or lesions noted General Skin Exam: no breakdown Neuro oriented x3, CN's II-XII intact bilaterally, moves all extremities, no focal motor deficits, no sensory deficits noted and deep tendon reflexes 2+ bilaterally Sensorium / Orientation: awake Motor Exam: strength 5/5 throughout Psych thought process normal, cooperative and affect normal Appearance: appropriate Weight / BMI Weight Weight: 155 lb 13.869 oz Body Mass Index (BMI) 31.4 ABG / Lab / Microbiology Data 01/08/23 03:39 01/08/23 03:39 D/C Instructions Discharge Diet: Low fat / Low cholesterol Discharge Activity: Return to Normal Activity Weight Bearing Status: Weight bearing as tolerated Call your doctor if you observe: Fever of 101 or Higher, Shortness of breath, Dizziness, Swelling in the ankles and Chest pain Meaningful Use Info Meaningful Use Diagnoses (Choose all that apply): None applicable Discharge Plan Admission Admit Date/Time: 01/07/23 15:09 Primary Reason for Your Visit: hypertension Attending Provider: Arlene Pisano Primary Care Provider: Fredrick Fleming Consulting Providers: Cheri Munroe Instructions Patient Instructions: ED Dizziness or Syncope ... Discharge Orders/Prescriptions Prescriptions: Continued lisinopril [Prinivil] 10 MG tablet 10 mg PO DAILY Referrals / Follow Up: Fredrick Fleming DO [Primary Care Provider] - Within 2 Weeks Disposition Disposition (needs filled in before D/C Order can be placed): Home, Self Care Charges/Coding Visit Charges Inpatient E&M: 81375 Disch Hosp >30min
[2023-01-09 15:01] VITALS: BP 127/73; PULSE 75; RESP 14; O2SAT 100
== END 2023-01-09 14:56 | disposition home or self-care (01) ==
LOC: ED 15:43 → PCU 18:57
PROVIDERS: Admitting Provider Family Medicine; Emergency Provider Emergency Medicine; PCP Student in an Organized Health Care Education/Training Program; Visit Provider Student in an Organized Health Care Education/Training Program
DX: I16.1 Hypertensive emergency (principal); E87.6 Hypokalemia; R42 Dizziness and giddiness; R77.8 Other specified abnormalities of plasma proteins; H53.9 Unspecified visual disturbance; I10 Essential (primary) hypertension; Z79.899 Other long term (current) drug therapy; R06.02 Shortness of breath; Z56.6 Other physical and mental strain related to work; E66.9 Obesity, unspecified; R73.02 Impaired glucose tolerance (oral)
CPT/HCPCS: 36415; 70450; 70496; 70498; 70551; 71045; 78452; 80048; 80053; 80061; 83036; 83735; 83880; 84443; 84484; 85025; 85610; 85730; 93005; 93017; 93306; 94762; 96365; 96366; 96376; 97802; 99221; 99285; A9500; J7030; Q9967; A4216; G0378

== ENCOUNTER 2023-04-18 21:56 | Emergency (ER) | payer OTHER, SELFPAY ==
[2023-04-18 21:57] VITALS: BP 142/90; PULSE 95; RESP 15; TEMP 36.5; O2SAT 100; BMI 31.3
[2023-04-18 22:43] LABS: Bacteria 0 SEEN /hpf (None Seen); Mucous, Urine 0 SEEN /hpf (<or=2+); Squamous Epithelial Cells - UA 0 SEEN /hpf (5-10)
[2023-04-18 22:47] LABS: Color, Urine Red (Yellow); Glucose, Dipstick Normal (Normal); Ketone-Dipstick 5 mg/dl (Negative); Leukocyte Esterase-Dipstick 100 /ul (Negative); Nitrite-Dipstick Negative (Negative); Occult Blood-Urine 250 /ul (Negative); Protein-Dipstick 500 mg/dl (Negative); Urine Bilirubin Dipstick Negative (Negative); Urine Clarity Turbid (Clear); Urine Urobilinogen Normal (Normal); Urine pH 6.5 (5.0 - 8.0)
--- NOTE | 2023-04-18 22:48 | ED.VIS.FEGU ---
HPI HPI - Female History of Present Illness Chief Complaint: Complaint Informant: patient Associated Symptoms Associated Symptoms: Positive for Dysuria, Frequency, Urgency and Hematuria Last known menstrual period: Symptoms began today. Narrative Narrative: 52-year-old female history of hypertension. Dysuria, hematuria and urgency began today around 3 AM. Prior UTI history. Nothing recently. Denies any nausea, vomiting or diarrhea. No fever. No history of kidney disease. Prior similar symptoms: Yes Recent Illness/Hospitalization: No PFSH PFSH Medical History Hypertension Obesity Home Medications lisinopril 20 mg-hydrochlorothiazide 12.5 mg tablet 1 tab PO DAILY 04/18/23 [History Last Taken Unknown] phenazopyridine 200 mg tablet (Pyridium) 200 mg PO TID #10 tabs 04/19/23 [Rx Last Taken Unknown] sulfamethoxazole 800 mg-trimethoprim 160 mg tablet (Bactrim DS) 1 tab PO BID 7 days #14 tabs 04/19/23 [Rx Last Taken Unknown] Allergy/AdvReac Type Severity Reaction Status Date / Time aspirin AdvReac Upset Verified 04/18/23 22:01 Stomach Family History Mother Hypertension Heart disease Father Hypertension Heart disease Surgical History Status post left breast lumpectomy Social History household members: spouse Smoking Status: Never smoker alcohol intake: current alcohol intake frequency: holidays/special occasions only substance use type: does not use ROS ROS ED ROS Narrative Hematuria, dysuria and urgency. Review of Systems ROS Unobtainable: Denies due to encephalopathy Constitutional Constitutional ED: Denies chills or fever(s) Eyes Eyes: Denies blurry vision ENT ENT ED: Denies ear pain Cardiovascular Cardiovascular: Denies chest pain or palpitations Respiratory/Chest Respiratory/Chest: Denies cough or dyspnea Gastrointestinal Gastrointestinal: Denies abdominal pain, constipation, diarrhea, melena, nausea or vomiting Genitourinary Genitourinary ED: Reports dysuria, hematuria and urinary frequency Musculoskeletal Musculoskeletal: Denies arthralgias, myalgias or neck pain Integumentary Denies abscess or Abrasions Neurologic Neurologic: Denies headache(s) Psychiatric Psychiatric: Denies anxiety or depression Endocrine Endocrinology: Denies heat intolerance or polydipsia Hematologic/Lymphatic Hematologic/Lymphatic: Denies easy bleeding or easy bruising Allergic/Immunologic Allergic/Immunologic ED: Denies mouth swelling or tongue swelling EXAM Physical Exam Narrative Exam Narrative: 52-year-old female vital signs are stable afebrile. No acute distress. Does not look septic or toxic. HEENT exam normal. Neck nontender. Lungs clear to auscultation. Heart regular rhythm no murmur. Abdomen soft nontender. Normal bowel sounds no peritoneal signs. Moving all 4 extremities. Nontender no edema. Back nontender. No CVA tenderness. Neurologically she is awake and alert. No focal motor deficits. Const Vital Signs: 04/18/23 21:57 04/19/23 00:51 Temperature 97.7 F L Temperature Source Temporal Pulse Rate 95 89 Respiratory Rate 15 15 Blood Pressure 142/90 H 136/76 H Blood Pressure Mean 107 96 Pulse Ox 100 98 Oxygen Delivery Method Room Air Room Air Positive well nourished and well developed; Negative for cachectic, contractures or unkempt General Appearance ED: well developed and NAD; Negative for unkempt, cachectic, contractures or pallor Nutritional Appearance: Negative for cachectic HEENT Reports moist mucous membranes Negative for trauma or tenderness Eyes PERRL and EOMs intact bilaterally General Eye ED: Negative for pale conjunctiva, scleral icterus or other Neck no lymphadenopathy, supple and no JVD General: Negative for other Thyroid: Negative for tender Lymph Lymphatic: Negative for other Chest Wall inspection of chest normal and palpation of chest normal Chest: Negative for other Resp normal respiratory effort and clear to auscultation bilaterally Effort and Inspection: Negative for pain with movement Auscultation: Negative for rales, rhonchi or wheezes Cardio regular rate, regular rhythm, S1 normal heart sound, no murmurs and no JVD Rate: Negative for bradycardia, tachycardic or other GI normal to inspection, nondistended, normoactive bowel sounds, soft to palpation, non-tender, non-distended and no masses Auscultation: normoactive bowel sounds Back/Spine no CVA tenderness General Back: Negative for CVA tenderness Cervical Spine: Negative for cervical spine tenderness Thoracic Spine / Upper Back: Negative for thoracic spinal tenderness Lumbar Spine / Lower Back: Negative for lumbar spinal tenderness Sacrum: Negative for other Extremity normal to inspection and full ROM General Extremety ED: Negative for edema or tenderness General Extremity: Negative for edema Neuro oriented x3, CN's II-XII intact bilaterally and no sensory deficits noted Sensorium / Orientation: alert, oriented to person, oriented to place and oriented to time; Negative for confused, lethargic, stuporous or other Motor Exam: strength 5/5 throughout; Negative for general weakness or strength abnormal Psych mental status grossly normal Appearance: Negative for unkempt Attitude: No agitated Speech: No other Mood & Affect: Negative for depressed, anxious or tearful Skin no rashes or lesions noted and no wounds General Skin Exam: Negative for jaundice or pallor Rashes: No rashes noted Trauma: Negative for other MDM MDM MDM Narrative Medical decision making narrative: 52-year-old female most likely UTI UA being sent. Clinically looks well. Does not need IV, other labs or imaging. Urinalysis only showed blood. No signs of infection. No nitrites nor white cells nor bacteria. On repeat exam at 12 AM the patient is having mild left lower flank pain. A CAT scan will be obtained. Repeat exam patient is doing well at 1:50 AM. CAT scan showed no stone but signs consistent with cystitis. Her symptoms are consistent with a UTI so she will be treated as such. Given 1 Bactrim and 1 Pyridium here. Placed on Bactrim 1 pill twice a day for 7 days. Pyridium for 3 days. Plenty of fluids. Cranberry juice. Follow-up with her primary if not improving. History & Record Review Discussion w/independent historian: Patient Additional record(s) reviewed:: Prior inpatient record, Prior outpatient record, Prior ED visit and Prior labs Lab Data Attestation: I reviewed the patient's lab results. Lab results narrative: Urinalysis shows turbid 50 occult blood. Greater than 100 red cells. No white cells. No bacteria. No nitrates. Labs: Laboratory Results - last 24 hr 04/18/23 22:25 Urine Color Red Urine Clarity Turbid Urine pH 6.5 Ur Specific [place] 1.020 Urine Protein 500 H Urine Glucose (UA) Normal Urine Ketones 5 H Urine Occult Blood 250 H Urine Nitrite Negative Urine Bilirubin Negative Urine Urobilinogen Normal Ur Leukocyte Esterase 100 H Urine RBC > 100 SEEN Urine WBC 0-5 SEEN Ur Squamous Epith Cells 0 SEEN Urine Bacteria 0 SEEN Urine Mucus 0 SEEN Radiography Diagnostic Testing: Clinical Impression(s) from Imaging Studies Abdomen/Pelvis CT 04/19/23 00:02 IMPRESSION: Perivesical inflammation concerning for cystitis. No nephrolithiasis or acute renal finding. [Please note CT is not excluded clinical pyelonephritis.. Mild hepatomegaly. Electronically Signed: Jayce Lemus MD at 1:25 EST , Discharge Plan Triage Chief Complaint: Complaint ED Provider: Yg Barnes Dx/Rx/DC Orders Clinical Impression: Cystitis Instructions: ED Cystitis Female Adult Prescriptions: New sulfamethoxazole-trimethoprim [Bactrim DS] 800-160 mg tablet 1 tab PO BID 7 Days Qty: 14 0RF phenazopyridine [Pyridium] 200 mg tablet 200 mg PO TID Qty: 10 0RF No Action lisinopril-hydrochlorothiazide 20-12.5 mg tablet 1 tab PO DAILY Patient Comments: Take 1 tablet by mouth once daily. Primary Care Provider: Fredrick Fleming Referrals: Fredrick Fleming, [Primary Care Provider] - 3-5 Days if not improving Activity Restrictions/Additional Instructions: Plenty of fluids and rest. Cranberry juice. Motrin and Tylenol for pain. Follow-up with your primary care provider if not improving. Return if feeling a lot worse. Bactrim 1 pill twice a day for 7 days. Pyridium next 3 days to help with the discomfort. Disposition Disposition: Home, Self Care
[2023-04-18 22:54] LABS: Red Blood Cells-Urine > 100 SEEN /hpf (0-5); White Blood Cells 0-5 SEEN /hpf (0-5)
--- OUTSIDE RECORDS SUMMARY | 2023-04-18 22:55 | XMS RPT_ITS | CCD ---
Author Name Unknown Address [address] [place] [address] Organization [facility] Care Team Providers Care Chairman Ceo Name Role Phone Fredrick Stout DO Primary Care Provider KRISTIAN RIZVI Attending Unavailab KRISTIAN Montague Referring Unavailab FREDRICK Tan Primary Care Unavailable FREDRICK STOUT Primary Care Unavailable FREDRICK STOUT Attending Unavailable ILIANA ANGELES Attending Unavailable FREDRICK STOUT Primary Care Unavailable LUIS ALCAZAR Attending Unavailable FREDRICK STOUT Primary Care Unavailable FREDRICK STOUT Primary Care Unavailable MARISA MYERS Attending Unavailable MARISA MYERS Referring Unavailable FREDRICK STOUT Primary Care Unavailable LUIS ALCAZAR Attending Unavailable FREDRICK STOUT Primary Care Unavailable FREDRICK STOUT Primary Care Unavailable LUIS ALCAZAR Attending Unavailable FREDRICK STOUT Primary Care Unavailable FREDRICK STOUT Primary Care Unavailable Allergies Allergy Classification Reported Allergen(s) Allergy Type Date of Onset Reaction(s) Facility (17 sources) Ibuprofen; Translations: [IBUPROFEN] Drug Allergy 06-11-2021 Other: See Comments [facility] Work Phone: (2 sources) Salicylic Acid; Translations: [SALICYLATES] Drug Allergy 10-25-2005 GI Upset [facility] (15 sources) Salicylate product Drug Allergy 10-25-2005 GI Upset [facility] Medications Current Medications Medication Drug Class(es) Dates Sig (Normalized) Sig (Original) amoxicillin 875 mg / clavulanate 125 mg oral tablet (2 sources) Penicillin-class Antibacterial Start: 06-27-2022 End: 07-04-2022 take 1 tablet by mouth twice daily amoxicillin-clav ulanic acid (AUGMENTIN) 875-125 mg per tablet Take 1 tablet by mouth twice daily for 7 days. 14 tablet 0 06/27/2022 07/04/2022 Active Completed/Discontinued Medications Medication Drug Class(es) Dates Sig (Normalized) Sig (Original) benzonatate 100 mg oral capsule (5 sources) Non-narcotic Antitussive Start: 03-27-2021 End: 03-13-2022 take 1 capsule by mouth every eight hours as needed benzonatate (TESSALON PERLES) 100 mg capsule Take 1 capsule by mouth three times daily as needed for cough. 21 capsule 0 03/27/2021 03/13/2022 Discontinued Problems Active Problems Problem Classification Problem Date Documented Date Episodic/Chronic Disorders of lipid metabolism (18 sources) Dyslipidemia; Translations: [Hyperlipidemia, unspecified] Onset: 12-02-2018 12-02-2018 Chronic Essential hypertension (20 sources) Hypertensive disorder; Translations: [Essential (primary) hypertension] Onset: 09-15-2013 09-15-2013 Chronic Headache; including migraine (3 sources) Headache; Translations: [Retro-ocular headaches] Episodic Other aftercare (1 source) Post-discharge follow-up; Translations: [Encounter for follow-up examination after completed treatment for conditions other than malignant neoplasm] 01-24-2023 Episodic Other and unspecified benign neoplasm (1 source) Melanocytic nevus; Translations: [Melanocytic nevi, unspecified] Episodic Other and unspecified benign neoplasm (1 source) Melanocytic nevus of skin ; Translations: [Melanocytic nevi, unspecified] Episodic Other connective tissue disease (1 source) Lateral epicondylitis of right humerus; Translations: [Lateral epicondylitis, right elbow] Episodic Other connective tissue disease (1 source) Pain of bilateral hands; Translations: [Pain in right hand] Episodic Other connective tissue disease (1 source) Pain in both feet; Translations: [Pain in right foot] Episodic Other connective tissue disease (1 source) Radial styloid tenosynovitis; Translations: [Radial styloid tenosynovitis [de Quervain]] Episodic Other ear and sense organ disorders (1 source) Otalgia, right ear; Translations: [Otalgia, unspecified] Episodic Other non-traumatic joint disorders (1 source) Pain in elbow; Translations: [Pain in right elbow] Episodic Other non-traumatic joint disorders (1 source) Pain of right wrist; Translations: [Pain in right wrist] Episodic Other nutritional; endocrine; and metabolic disorders (16 sources) Obese class I; Translations: [Obesity, unspecified] Onset: 05-30-2017 05-30-2017 Chronic Otitis media and related conditions (2 sources) Acute non-suppurative otitis media - serous; Translations: [Acute serous otitis media, right ear] Episodic Residual codes; unclassified (1 source) Family history of malignant melanoma; Translations: [Family history of malignant neoplasm of other organs or systems] Episodic Past or Other Problems Problem Classification Problem Date Documented Date Episodic/Chronic Conditions associated with dizziness or vertigo (18 sources) Dizziness; Translations: [Dizziness and giddiness] Onset: 08-16-2013 08-16-2013 Episodic Deficiency and other anemia (17 sources) Anemia; Translations: [Anemia, unspecified] Onset: 01-10-2021 01-10-2021 Episodic Other and unspecified benign neoplasm (2 sources) Melanocytic nevi, unspecified; Translations: [Atypical mole] Onset: 10-21-2022 Episodic Other liver diseases (16 sources) Aspartate aminotransferase serum level raised; Translations: [Elevated AST (SGOT)] Onset: 02-25-2017 02-25-2017 Episodic Other non-traumatic joint disorders (16 sources) Pain in right knee; Translations: [Pain in joint, lower leg] Onset: 12-02-2018 12-02-2018 Episodic Other nutritional; endocrine; and metabolic disorders (16 sources) Body mass index 25-29 - overweight; Translations: [Overweight] Onset: 02-25-2017 02-25-2017 Episodic Other screening for suspected conditions (not mental disorders or infectious disease) (20 sources) Mammography abnormal; Translations: [Other abnormal and inconclusive findings on diagnostic imaging of breast] Onset: 08-27-2010 08-27-2010 Episodic Residual codes; unclassified (16 sources) Family history of cardiac disorder; Translations: [Family history of ischemic heart disease and other diseases of the circulatory system] Onset: 08-16-2013 08-16-2013 Episodic Residual codes; unclassified (1 source) Family history of malignant neoplasm of other organs or systems; Translations: [Family history of malignant melanoma] Onset: 10-21-2022 Episodic Syncope (16 sources) Syncope; Translations: [Syncope and collapse] Onset: 08-16-2013 09-15-2013 Episodic Results Test Name Value Interpretation Reference Range Facil ity Vital Signs Date Time Vital Sign Value Performing Clinician Emelia israel 01-24-2023 09:05-0400 Body weight 70.58 kg Luis Alcazar FIGURE SKATER.PRODUCTION OFFICER Work Phone: [facility] 01-24-2023 09:05-0400 Diastolic blood pressure 60 mm[Hg] Luis Alcazar FIGURE SKATER.PRODUCTION OFFICER Work Phone: [facility] 01-24-2023 09:05-0400 Heart rate 69 /min Luis Alcazar FIGURE SKATER.PRODUCTION OFFICER Work Phone: [facility] 01-24-2023 09:05-0400 Respiratory rate 12 /min Luis Alcazar FIGURE SKATER.PRODUCTION OFFICER Work Phone: [facility] 01-24-2023 09:05-0400 SaO2% (BldA) [Mass fraction] 99 % Luis Alcazar FIGURE SKATER.PRODUCTION OFFICER Work Phone: [facility] 01-24-2023 09:05-0400 Systolic blood pressure 100 mm[Hg] Luis Alcazar FIGURE SKATER.PRODUCTION OFFICER Work Phone: [facility] 01-13-2023 13:27-0400 Body weight 69.22 kg Luis Alcazar FIGURE SKATER.PRODUCTION OFFICER Work Phone: [facility] 01-13-2023 13:27-0400 Diastolic blood pressure 62 mm[Hg] Luis Alcazar FIGURE SKATER.PRODUCTION OFFICER Work Phone: [facility] 01-13-2023 13:27-0400 Heart rate 64 /min Luis Alcazar FIGURE SKATER.PRODUCTION OFFICER Work Phone: [facility] 01-13-2023 13:27-0400 Respiratory rate 12 /min Luis Alcazar FIGURE SKATER.PRODUCTION OFFICER Work Phone: [facility] 01-13-2023 13:27-0400 Systolic blood pressure 136 mm[Hg] Luis Alcazar FIGURE SKATER.PRODUCTION OFFICER Work Phone: [facility] 10-21-2022 09:35-0400 Body weight 69.76 kg Kristian Rizvi MD Work Phone: [facility] 10-21-2022 09:35-0400 Diastolic blood pressure 74 mm[Hg] Kristian Rizvi MD Work Phone: [facility] 10-21-2022 09:35-0400 Heart rate 66 /min Kristian Rizvi MD Work Phone: [facility] 10-21-2022 09:35-0400 Respiratory rate 16 /min Kristian Rizvi MD Work Phone: [facility] 10-21-2022 09:35-0400 SaO2% (BldA) [Mass fraction] 98 % Kristian Rizvi MD Work Phone: [facility] 10-21-2022 09:35-0400 Systolic blood pressure 116 mm[Hg] Kristian Rizvi MD Work Phone: [facility] 07-01-2022 07:32-0400 Body weight 69.31 kg Luis Alcazar FIGURE SKATER.PRODUCTION OFFICER Work Phone: [facility] 07-01-2022 07:32-0400 Diastolic blood pressure 66 mm[Hg] Luis Alcazar FIGURE SKATER.PRODUCTION OFFICER Work Phone: [facility] 07-01-2022 07:32-0400 Heart rate 62 /min Luis Alcazar FIGURE SKATER.PRODUCTION OFFICER Work Phone: [facility] 07-01-2022 07:32-0400 Respiratory rate 16 /min Luis Alcazar FIGURE SKATER.PRODUCTION OFFICER Work Phone: [facility] 07-01-2022 07:32-0400 Systolic blood pressure 130 mm[Hg] Luis Alcazar FIGURE SKATER.PRODUCTION OFFICER Work Phone: [facility] 06-27-2022 07:32-0500 Body temperature 97.81 [degF] Melinda Meek FIGURE SKATER.PRODUCTION OFFICER Work Phone: [facility] 06-27-2022 07:32-0500 Body weight 67.77 kg Melinda Meek FIGURE SKATER.PRODUCTION OFFICER Work Phone: [facility] 06-27-2022 07:32-0500 Diastolic blood pressure 88 mm[Hg] Melinda Meek FIGURE SKATER.PRODUCTION OFFICER Work Phone: [facility] 06-27-2022 07:32-0500 Heart rate 83 /min Melinda Meek FIGURE SKATER.PRODUCTION OFFICER Work Phone: [facility] 06-27-2022 07:32-0500 Respiratory rate 18 /min Melinda Meek FIGURE SKATER.PRODUCTION OFFICER Work Phone: [facility] 06-27-2022 07:32-0500 SaO2% (BldA) [Mass fraction] 99 % Melinda Meek FIGURE SKATER.PRODUCTION OFFICER Work Phone: [facility] 06-27-2022 07:32-0500 Systolic blood pressure 126 mm[Hg] Melinda Meek FIGURE SKATER.PRODUCTION OFFICER Work Phone: [facility] 03-13-2022 09:11-0500 Body weight 69.4 kg Marisa Lucia FIGURE SKATER.PRODUCTION OFFICER Work Phone: [facility] 03-13-2022 09:11-0500 Diastolic blood pressure 82 mm[Hg] Marisa Lucia FIGURE SKATER.PRODUCTION OFFICER Work Phone: [facility] 03-13-2022 09:11-0500 Heart rate 78 /min Marisa Lucia FIGURE SKATER.PRODUCTION OFFICER Work Phone: [facility] 03-13-2022 09:11-0500 Respiratory rate 16 /min Marisa Lucia FIGURE SKATER.PRODUCTION OFFICER Work Phone: [facility] 03-13-2022 09:11-0500 SaO2% (BldA) [Mass fraction] 97 % Marisa Lucia FIGURE SKATER.PRODUCTION OFFICER Work Phone: [facility] 03-13-2022 09:11-0500 Systolic blood pressure 118 mm[Hg] Marisa Lucia FIGURE SKATER.PRODUCTION OFFICER Work Phone: [facility] 06-11-2021 09:59-0500 Body height 149.9 cm Lazaro Arreola MD Work Phone: [facility] 06-11-2021 09:59-0500 Body weight 61.24 kg Lazaro Arreola MD Work Phone: [facility] Encounters Encounter Date Encounter Type Care Provider Facility Start: 02-17-2023 Telephone encounter Luis Dalton son FIGURE SKATER.PRODUCTION OFFICER Work Phone: [facility] [address] Procedures Date Procedure Procedure Detail Performing Clinician Start: 12-07-2021 Mammography Mammograph y Coordinator Start: 01-09-2021 Adult depression screening assessment Lazaro Arreola MD Work Phone: Start: 03-02-2020 Mammography Lazaro roque MD Work Phone: Start: 12-12-2018 Lipid 1996 panel - S bibi or Plasma Fredrick Stout DO Work Phone: Plan of Treatment Date Care Activity Detail Author Start: 01-25-2024 Annual PCP Team Wrapper Counter andrae Disease Visit Annual PCP Team Chronic Disease Visit [facility] Start: 01-25-2024 BP Controlled (<130/80) BP Controlle d (<130/80) [facility] Start: 01-14-2024 Annual PCP Team Wrapper Counter andrae Disease Visit Annual PCP Team Chronic Disease Visit [facility] Start: 01-14-2024 Hepatitis B Vaccine (1 of 3 - 3-dose series) Hepatitis B Vaccine (1 of 3 - 3-dose series) [facility] Immunizations Immunization Date Immunization Notes Care Provider Susanne sarkar 02-24-2017 influenza virus vaccine, unspecified formulation Fredrick Stout DO Work Phone: [facility] 09-15-2013 tetanus toxoid, redu jomar diphtheria toxoid, and acellular pertussis vaccine, adsorbed Lazaro Arreola MD Work Phone: [facility] Work Phone: Payers Date Payer Category Payer Unknown [employer] [id number] 2018-Present [phone] [address] [place] [address] PPO [id number] 2018 Unknown [id number] 2018 Unknown [id number] Social History Date Type Detail Facility Start: 05-28-2017 End: 03-13-2022 Tobacco smoking status NHIS Never smoked tobacco [facility] Work Phone: Start: 06-11-2021 End: 01-24-2023 Alcohol intake Current drinker of alcohol (finding) [facility] Start: 1970 Sex Assigned At Female [facility] Start: 05-12-2021 End: 03-13-2022 Exposure to SARS-CoV-2 (event) Not sure [facility] Start: 05-28-2017 End: 03-13-2022 Tobacco use and exposure Smokeless tobacco non-user [facility] Work Phone: Start: 03-08-2022 End: 06-29-2022 History SDOH Alcohol Frequency 2 [facility] Start: 03-08-2022 End: 06-29-2022 History SDOH Alcohol Std Drinks 1 [facility] Start: 03-08-2022 History SDOH Social Connections Phone 4 [facility] Start: 03-08-2022 History SDOH Social Connections Meetings 98 [facility] Start: 03-08-2022 End: 06-29-2022 History SDOH Social Connections Living 3 [facility] Start: 06-29-2022 History SDOH Alcohol Std Drinks 0 [facility] Start: 06-29-2022 History SDOH Financial 5 [facility] Start: 06-29-2022 End: 10-01-2022 History of Social function [facility] Start: 06-29-2022 End: 10-01-2022 Social connection and isolation panel [facility] Do you belong to any clubs or organizations such as sikhism groups, unions, fraternal or athletic groups, or school groups? No [facility] Are you now , , , , never or living with a partner? [facility] How often to you hav e a drink containing alcohol? Monthly or less [facility] How many standard dr inks containing alcohol do you have on a typical day? Patient does not drink [facility] How often do you hav e 6 or more drinks on 1 occasion? Never [facility] Do you feel stress - tense, restless, nervous, or anxious, or unable to sleep at night because your mind is troubled all the time - these days [OSQ] Not at all [facility] (I/We) worried wheth er (my/our) food would run out before (I/we) got money to buy more. Never true [facility] Start: 01-03-2020 Gender identity Identifies as female gender (finding) [facility] Start: 01-03-2020 Sexual orientation Heterosexual (finding) [facility] Clinical Notes 06-11-2021 to 02-21-2023 Telephone Encounter - Luis Alcazar APRN.JOVANI - 02/21/2023 1:53 PM EDTTelephone Encounter - Cady Baig RN - 02/21/2023 9:01 AM EDTLuis Alcazar APRN.JOVANI - 01/24/2023 9:04 AM EDT Note Date & Type Note Facility 02-21-2023 Miscellaneous Notes Awesome. Thank you. Luis Alcazar APRN.PRODUCTION OFFICER Patient returned call and given provider's message below. Patient states she does not know why provider received the paperwork again. Reports this has already been taken care of and she is back to work. Spoke with pt and she just woke up and ask to be called back tomorrow 02-21-23. Winsome Gómez LPN Attempted to reach pt machine is full. Will need to try back. Please get more information from patient about short term disability paperwork that was in my inbox. Paperwork was already filled out during office visit for this. Also, needing information from patient for page 2 about limitations with job duties? How long was she off for? Is she back at work? I was under the impression she just needed paperwork for while she was hospitalized from 01/07-01/09? Thank you, Luis Alcazar APRN.PRODUCTION OFFICER documented in this encounter [facility] 01-24-2023 Note HNO ID: [id number] Author: Luis Alcazar APRN.CNP Service: ? Author Type: Nurse Practitioner Type: Progress Notes Filed: 01/24/2023 9:36 AM Note Text: Chief Complaint Patient presents with: Hospital F/U HPI Rosaura Maza is a 52 year old female who presents here today for Above Complaints.. Rosaura is an established patient of Dr. Stout, and myself. Concerns today.. Hospital follow-up--- [facility] ER visit on 01/07. Admitted d/t HTN emergency, dizziness, and L sided headache. Was placed on IV hydralazine prn. EKG -- normal CT and CTA of brain -- normal MRI brain -- unremarkable Chest x-ray -- normal ECHO -- normal with EF of 70% BP improved inpatient Hypokalemia at 3 while inpatient. Discharged on 01/09 Today in office... No new BP medication. Was seen in office by this provider on 01/13 d/t continued headache. Dx with tension headaches and prescribed flexeril prn. (Refer to chart and recent visit). Pt reports symptoms are greatly improved since. Medication improved headache significantly and rarely had headaches since this visit. Pt here today just to get form filled out for employer due to missing 4 days of work d/t hospitalization. She states compliant with current blood pressure medication(s): lisinopril/HCTZ. She does check BP at home. Average home readings: never elevated, highest of 130/72. She denies chest pain, shortness of breath, palpitations, dizziness, leg edema, headaches, or vision changes. Last 14 Encounter BP Readings: Date: BP: 01/24/2023 100/60 01/13/2023 136/62 01/07/2023 158/92 10/21/2022 116/74 10/01/2022 128/68 07/01/2022 130/66 06/27/2022 126/88 03/13/2022 118/82 03/27/2021 136/82 01/09/2021 122/80 10/25/2019 128/78 10/22/2019 132/82 06/08/2019 132/80 12/02/2018 120/80 Past medical history, appointments, medications, allergies reviewed. Previous Medical History PAST MEDICAL HISTORY Diagnosis Date Hypertension Mild tricuspid regurgitation 08/2013 Vertigo Previous Surgical History PAST SURGICAL HISTORY Procedure Laterality Date BX BREAST PERC VACUUM/ROTN 08/27/10 Right - +mcirocalcifications PAST SURGICAL HISTORY OF breast surgery Lt - benign lump removed Family History FAMILY HISTORY Problem Relation Age of Onset Cancer Mother melanoma Hypertension Mother Heart Brother 40 NE Patient Allergies ALLERGIES Allergen Reactions Asa [Salicylates] GI Upset Ibuprofen Other: See Comments causes GI upset if takes over 200 mg at a time Current Medications Current Outpatient Medications on File Prior to Visit Medication Sig cyclobenzaprine (FLEXERIL) 10 mg tablet Take 1 tablet by mouth three times daily as needed for muscle spasm. diclofenac (VOLTAREN ARTHRITIS PAIN) 1 % topical gel Apply 2 g to affected area three times daily. On right thumb lisinopril-hydroCHLOROthiazide (PRINZIDE,ZESTORETIC) 20-12.5 mg per tablet Take 1 tablet by mouth once daily. iron bis-gly/FA/C/B12/Ca/succ (IRON-150 ORAL) Take by mouth. cyanocobalamin, vitamin B-12, (VITAMIN B-12 ORAL) Take by mouth. Cholecalciferol, Vitamin D3, 50 mcg (2,000 unit) cap Take 2,000 Units by mouth once daily. Zinc 50 mg tab Take 50 mg by mouth once daily. MAGNESIUM ORAL Take by mouth once daily. No current facility-administered medications on file prior to visit. Social History Social History Tobacco Use Smoking status: Never Smokeless tobacco: Never Vaping Use Vaping Use: Never used Substance Use Topics Alcohol use: Yes Comment: occasional spritzer Drug use: Never REVIEW OF SYSTEMS: as above Reviewed relevant PMHx, PSHx, Social Hx, current medications and allergies. Review of Symptoms REVIEW OF SYSTEMS See HPI. EXAM: BP 100/60 (BP Site: Left Arm, BP Position: Sitting, BP Cuff Size: Regular Adult) Pulse 69 Resp 12 Wt 70.6 kg (155 lb 9.6 oz) LMP (LMP Unknown) SpO2 99% BMI 31.43 kg/m? General Appearance: Well appearing, alert, in no acute distress, well-hydrated, well nourished.. Skin: Skin color, texture, turgor normal, no suspicious rashes or lesions. Head: Normocephalic, no masses, lesions, tenderness or abnormalities. Lungs: Lungs clear to auscultation. No wheezing, rhonchi, rales.. Heart: RRR without murmur, gallop, or rubs. No ectopy. Health Maintenance List Hepatitis C Screening Never done HIV Screening Never done Colorectal Cancer Screening Never done HPV Testing due on 12/03/2017 Diabetes Screening due on 12/12/2021 BP Controlled (<130/80) due on 01/10/2022 Depression Assessment Never done Mammogram Screening due on 12/07/2022 Covid-19 Vaccine(1) due on 07/02/2023 Influenza Vaccine(1) due on 10/19/2023 Hepatitis B Vaccine(1 of 3 - 3-dose series) due on 01/14/2024 Pap Testing due on 01/14/2024 Shingrix Vaccine(1 of 2) due on 01/14/2024 DTaP,Tdap,Td Vaccine(2 - Td or Tdap) due on 09/16/2023 Lipid Screening due on 12/13/2023 Annual PCP Team Chronic Dis (more content not included)... [facility] 01-24-2023 History of Presen t illness Narrative Chief Complaint Patient presents with: Hospital F/U HPI Rosaura Maza is a 52 year old female who presents here today for Above Complaints.. Rosaura is an established patient of Dr. Stout, DO and myself. Concerns today.. Hospital follow-up--- [facility] ER visit on 01/07. Admitted d/t HTN emergency, dizziness, and L sided headache. Was placed on IV hydralazine prn. EKG -- normal CT and CTA of brain -- normal MRI brain -- unremarkable Chest x-ray -- normal ECHO -- normal with EF of 70% BP improved inpatient Hypokalemia at 3 while inpatient. Discharged on 01/09 Today in office... No new BP medication. Was seen in office by this provider on 01/13 d/t continued headache. Dx with tension headaches and prescribed flexeril prn. (Refer to chart and recent visit). Pt reports symptoms are greatly improved since. Medication improved headache significantly and rarely had headaches since this visit. Pt here today just to get form filled out for employer due to missing 4 days of work d/t hospitalization. She states compliant with current blood pressure medication(s): lisinopril/HCTZ. She does check BP at home. Average home readings: never elevated, highest of 130/72. She denies chest pain, shortness of breath, palpitations, dizziness, leg edema, headaches, or vision changes. Last 14 Encounter BP Readings: Date: BP: 01/24/2023 100/60 01/13/2023 136/62 01/07/2023 158/92 10/21/2022 116/74 10/01/2022 128/68 07/01/2022 130/66 06/27/2022 126/88 03/13/2022 118/82 03/27/2021 136/82 01/09/2021 122/80 10/25/2019 128/78 10/22/2019 132/82 06/08/2019 132/80 12/02/2018 120/80 Past medical history, appointments, medications, allergies reviewed. Previous Medical History PAST MEDICAL HISTORY Diagnosis Date Hypertension Mild tricuspid regurgitation 08/2013 Vertigo Previous Surgical History PAST SURGICAL HISTORY Procedure Laterality Date BX BREAST PERC VACUUM/ROTN 08/27/10 Right - +mcirocalcifications PAST SURGICAL HISTORY OF breast surgery Lt - benign lump removed Family History FAMILY HISTORY Problem Relation Age of Onset Cancer Mother melanoma Hypertension Mother Heart Brother 40 [address] Patient Allergies ALLERGIES Allergen Reactions Asa [Salicylates] GI Upset Ibuprofen Other: See Comments causes GI upset if takes over 200 mg at a time Current Medications Current Outpatient Medications on File Prior to Visit Medication Sig cyclobenzaprine (FLEXERIL) 10 mg tablet Take 1 tablet by mouth three times daily as needed for muscle spasm. diclofenac (VOLTAREN ARTHRITIS PAIN) 1 % topical gel Apply 2 g to affected area three times daily. On right thumb lisinopril-hydroCHLOROthiazide (PRINZIDE,ZESTORETIC) 20-12.5 mg per tablet Take 1 tablet by mouth once daily. iron bis-gly/FA/C/B12/Ca/succ (IRON-150 ORAL) Take by mouth. cyanocobalamin, vitamin B-12, (VITAMIN B-12 ORAL) Take by mouth. Cholecalciferol, Vitamin D3, 50 mcg (2,000 unit) cap Take 2,000 Units by mouth once daily. Zinc 50 mg tab Take 50 mg by mouth once daily. MAGNESIUM ORAL Take by mouth once daily. No current facility-administered medications on file prior to visit. Social History Social History Tobacco Use Smoking status: Never Smokeless tobacco: Never Vaping Use Vaping Use: Never used Substance Use Topics Alcohol use: Yes Comment: occasional spritzer Drug use: Never REVIEW OF SYSTEMS: as above Reviewed relevant PMHx, PSHx, Social Hx, current medications and allergies. Review of Symptoms REVIEW OF SYSTEMS See HPI. EXAM: BP 100/60 (BP Site: Left Arm, BP Position: Sitting, BP Cuff Size: Regular Adult) Pulse 69 Resp 12 Wt 70.6 kg (155 lb 9.6 oz) LMP (LMP Unknown) SpO2 99% BMI 31.43 kg/m General Appearance: Well appearing, alert, in no acute distress, well-hydrated, well nourished.. Skin: Skin color, texture, turgor normal, no suspicious rashes or lesions. Head: Normocephalic, no masses, lesions, tenderness or abnormalities. Lungs: Lungs clear to auscultation. No wheezing, rhonchi, rales.. Heart: RRR without murmur, gallop, or rubs. No ectopy. Health Maintenance List Hepatitis C Screening Never done HIV Screening Never done Colorectal Cancer Screening Never done HPV Testing due on 12/03/2017 Diabetes Screening due on 12/12/2021 BP Controlled (<130/80) due on 01/10/2022 Depression Assessment Never done Mammogram Screening due on 12/07/2022 Covid-19 Vaccine(1) due on 07/02/2023 Influenza Vaccine(1) due on 10/19/2023 Hepatitis B Vaccine(1 of 3 - 3-dose series) due on 01/14/2024 Pap Testing due on 01/14/2024 Shingrix Vaccine(1 of 2) due on 01/14/2024 DTaP,Tdap,Td Vaccine(2 - Td or Tdap) due on 09/16/2023 Lipid Screening due on 12/13/2023 Annual PCP Team Chronic Disease Visit due on 01/14/2024 ASSESSMENT/PLAN: 1. Hospital discharge follow-up - ICD9: V67.59, ICD10: Z09 (primary diagnosis) Much improved. BP stable. Filled out form for work about hospitalization and diagnosis. 2. Headache, unspecified headache type - ICD9: 784.0, ICD10: R51.9 Much improved from last visit with flexeril rx. Continue muscle relaxant as needed. 3. Hypertension, essential - ICD9: 401.9, ICD10: I10 - Controlled - Continue current medications - Recommend home blood pressure monitoring, to bring results to next visit - Encouraged sodium restriction, DASH or Mediterranean diet - Recommend regular aerobic exercise RTO as needed. Prescription instructions reviewed with patient as applicable. Potential red flag symptoms discussed with the patient. Reviewed appropriate action plan to take if red flag symptoms occur. Patient agreeable to treatment plan. Luis Ayers APRN.CNP [address] [place] [address] documented in this encounter [facility] 01-13-2023 Note HNO ID: [id number] Author: Luis Alcazar APRN.CNP Service: ? Author Type: Nurse Practitioner Type: Progress Notes Filed: 01/13/2023 2:24 PM Note Text: Chief Complaint Patient presents with: follow up from urgent care high b/p was sent to er: Pt states they kep t her a coup[le days. Deshaun she states is still dizzy and stomach gets upset. Needs a note for missing work. HPI Rosaura Maza is a 52 year old female who presents here today for Above Complaints.. Rosaura is an established patient of Dr. Stout, and myself. Concerns today... Hospital Follow-up -- Was sent to ER from urgent care on 01/07/23 due to headache with associated visual disturbances and elevated BP. In ER: EKG: NSR Initial troponin elevated concerning for myocardial ischemia CBC without leukocytosis, severe anemia, no thrombocytopenia. BMP without evidence of significant electrolyte abnormalities, no anion gap, no acute kidney injury. BNP normal Chest x-ray is unremarkable CT scan of head: normal. CTA head: negative MRI of the brain: negative 2D echo showed EF of 70% with no regional wall motion abnormalities. Per ER note: Patient was initially mildly hypertensive. She had no focal neurologic deficits. Concern for endorgan damage given report of high blood pressure. Obtained a broad lab and imaging work-up I considered the following differential diagnosis: [Kidney dysfunction ICH, ACS. Labs images remarkable for elevated troponin. EKG was nonischemic. Patient was given aspirin for mortality benefit Norvas for blood pressure control admitted for respiratory modification and further evaluation of elevated troponin Pt admitted from 01/07-01/10. Exercise stress test 01/09 -- normal Currently in office today... Intermittent dizziness and headaches since hospital admission. Headache across forehead, behind eyes, and down L side of neck. Pt reports job and stress contributing. Pt reports anxiousness related to work and thinks she would greatly benefit and feel better if she got a new job. Pt reports nausea with some headaches and feels like she needs to be in a dark room. 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 BP readings at home have be stable. Did have one low reading of 93/63. On lisinopril-HCTZ 20-12.5 mg regimen now. Pt reports chest pressure with dizziness occasionally. Denies any SOB or palpitations. Last 14 Encounter BP Readings: Date: BP: 01/13/2023 136/62 01/07/2023 158/92 10/21/2022 116/74 10/01/2022 128/68 07/01/2022 130/66 06/27/2022 126/88 03/13/2022 118/82 03/27/2021 136/82 01/09/2021 122/80 10/25/2019 128/78 10/22/2019 132/82 06/08/2019 132/80 12/02/2018 120/80 06/01/2018 112/80 Past medical history, appointments, medications, allergies reviewed. Previous Medical History PAST MEDICAL HISTORY Diagnosis Date Hypertension Mild tricuspid regurgitation 08/2013 Vertigo Previous Surgical History PAST SURGICAL HISTORY Procedure Laterality Date BX BREAST PERC VACUUM/ROTN 08/27/10 Right - +mcirocalcifications PAST SURGICAL HISTORY OF breast surgery Lt - benign lump removed Family History FAMILY HISTORY Problem Relation Age of Onset Cancer Mother melanoma Hypertension Mother Heart Brother 40 NE Patient Allergies ALLERGIES Allergen Reactions Asa [Salicylates] GI Upset Ibuprofen Other: See Comments causes GI upset if takes over 200 mg at a time Current Medications Current Outpatient Medications on File Prior to Visit Medication Sig diclofenac (VOLTAREN ARTHRITIS PAIN) 1 % topical gel Apply 2 g to affected area three times daily. On right thumb predniSONE (DELTASONE) 20 mg tablet Take 2 tablets PO daily x 4 days in the morning with breakfast then take 1 tablet PO daily x 4 days with breakfast (Patient not taking: Reported on 10/21/2022) predniSONE (DELTASONE) 10 mg tablet 6 tabs po day 1, then 5 tabs day 2, 4 tabs day 3, 3 tabs day 4, 2 tabs day 5, 1 tab day 6. (Patient not taking: Reported on 10/21/2022) meloxicam (MOBIC) 15 mg tablet Take 1 tablet by mouth once daily. (Patient not taking: Reported on 10/21/2022) lisinopril-hydroCHLOROthiazide (PRINZIDE,ZESTORETIC) 20-12.5 mg per tablet Take 1 tablet by mouth once daily. iron bis-gly/FA/C/B12/Ca/succ (IRON-150 ORAL) Take by mouth. cyanocobalamin, vitamin B-12, (VITAMIN B-12 ORAL) Take by mouth. Cholecalciferol, Vitamin D3, 50 mcg (2,000 unit) cap Take 2,000 Units by mouth once daily. Zinc 50 mg tab Take 50 mg by mouth once daily. VITAMIN E ORAL Take by mouth once daily. (Patient not taking: Reported on 07/26/2022) MAGNESIUM ORAL Take by mouth once daily. No current facility-administered medications on file prior to visit. Social History Social History Tobacco Use Smoking status: Never Smokeless tobacco: Never Vaping Use Vaping Use: Never used Substance Use Topics Alcohol use: Yes Comment: occasional spritzer Drug use: Never R (more content not included)... [facility] 01-13-2023 Note HNO ID: [id number] Author: Oh Fernández APRN.PRODUCTION OFFICER Service: ? Author Type: Nurse Practitioner Type: Progress Notes Filed: 01/13/2023 1:05 PM Note Text: Patient triaged at [facility]. Here today with dizziness/intermittent and need for fmla paperwork. Was seen in ER for dizziness 1 week ago, negative workup. I discussed limitations of [facility]. Will get appointment with pcp. [facility] 01-13-2023 History of Presen t illness Narrative Chief Complaint Patient presents with: follow up from urgent care high b/p was sent to er: Pt states they kep t her a coup[le days. Deshaun she states is still dizzy and stomach gets upset. Needs a note for missing work. HPI Rosaura Maza is a 52 year old female who presents here today for Above Complaints.. Rosaura is an established patient of Dr. Stout, and myself. Concerns today... Hospital Follow-up -- Was sent to ER from urgent care on 01/07/23 due to headache with associated visual disturbances and elevated BP. In ER: EKG: NSR Initial troponin elevated concerning for myocardial ischemia CBC without leukocytosis, severe anemia, no thrombocytopenia. BMP without evidence of significant electrolyte abnormalities, no anion gap, no acute kidney injury. BNP normal Chest x-ray is unremarkable CT scan of head: normal. CTA head: negative MRI of the brain: negative 2D echo showed EF of 70% with no regional wall motion abnormalities. Per ER note: Patient was initially mildly hypertensive. She had no focal neurologic deficits. Concern for endorgan damage given report of high blood pressure. Obtained a broad lab and imaging work-up I considered the following differential diagnosis: [Kidney dysfunction ICH, ACS. Labs images remarkable for elevated troponin. EKG was nonischemic. Patient was given aspirin for mortality benefit Norvasc for blood pressure control admitted for respiratory modification and further evaluation of elevated troponin Pt admitted from 01/07-01/10. Exercise stress test 01/09 -- normal Currently in office today... Intermittent dizziness and headaches since hospital admission. Headache across forehead, behind eyes, and down L side of neck. Pt reports job and stress contributing. Pt reports anxiousness related to work and thinks she would greatly benefit and feel better if she got a new job. Pt reports nausea with some headaches and feels like she needs to be in a dark room. 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 BP readings at home have be stable. Did have one low reading of 93/63. On lisinopril-HCTZ 20-12.5 mg regimen now. Pt reports chest pressure with dizziness occasionally. Denies any SOB or palpitations. Last 14 Encounter BP Readings: Date: BP: 01/13/2023 136/62 01/07/2023 158/92 10/21/2022 116/74 10/01/2022 128/68 07/01/2022 130/66 06/27/2022 126/88 03/13/2022 118/82 03/27/2021 136/82 01/09/2021 122/80 10/25/2019 128/78 10/22/2019 132/82 06/08/2019 132/80 12/02/2018 120/80 06/01/2018 112/80 Past medical history, appointments, medications, allergies reviewed. Previous Medical History PAST MEDICAL HISTORY Diagnosis Date Hypertension Mild tricuspid regurgitation 08/2013 Vertigo Previous Surgical History PAST SURGICAL HISTORY Procedure Laterality Date BX BREAST PERC VACUUM/ROTN 08/27/10 Right - +mcirocalcifications PAST SURGICAL HISTORY OF breast surgery Lt - benign lump removed Family History FAMILY HISTORY Problem Relation Age of Onset Cancer Mother melanoma Hypertension Mother Heart Brother 40 [address] Patient Allergies ALLERGIES Allergen Reactions Asa [Salicylates] GI Upset Ibuprofen Other: See Comments causes GI upset if takes over 200 mg at a time Current Medications Current Outpatient Medications on File Prior to Visit Medication Sig diclofenac (VOLTAREN ARTHRITIS PAIN) 1 % topical gel Apply 2 g to affected area three times daily. On right thumb predniSONE (DELTASONE) 20 mg tablet Take 2 tablets PO daily x 4 days in the morning with breakfast then take 1 tablet PO daily x 4 days with breakfast (Patient not taking: Reported on 10/21/2022) predniSONE (DELTASONE) 10 mg tablet 6 tabs po day 1, then 5 tabs day 2, 4 tabs day 3, 3 tabs day 4, 2 tabs day 5, 1 tab day 6. (Patient not taking: Reported on 10/21/2022) meloxicam (MOBIC) 15 mg tablet Take 1 tablet by mouth once daily. (Patient not taking: Reported on 10/21/2022) lisinopril-hydroCHLOROthiazide (PRINZIDE,ZESTORETIC) 20-12.5 mg per tablet Take 1 tablet by mouth once daily. iron bis-gly/FA/C/B12/Ca/succ (IRON-150 ORAL) Take by mouth. cyanocobalamin, vitamin B-12, (VITAMIN B-12 ORAL) Take by mouth. Cholecalciferol, Vitamin D3, 50 mcg (2,000 unit) cap Take 2,000 Units by mouth once daily. Zinc 50 mg tab Take 50 mg by mouth once daily. VITAMIN E ORAL Take by mouth once daily. (Patient not taking: Reported on 07/26/2022) MAGNESIUM ORAL Take by mouth once daily. No current facility-administered medications on file prior to visit. Social History Social History Tobacco Use Smoking status: Never Smokeless tobacco: Never Vaping Use Vaping Use: Never used Substance Use Topics Alcohol use: Yes Comment: occasional spritzer Drug use: Never REVIEW OF SYSTEMS: as above Reviewed relevant PMHx, PSHx, Social Hx, current medications and allergies. Review of Symptoms REVIEW OF SYSTEMS See HPI. EXAM: BP 136/62 (BP Site: Left Arm, BP Position: Sitting, BP Cuff Size: Regular Adult) Pulse 64 Resp 12 Wt 69.2 kg (152 lb 9.6 oz) LMP (LMP Unknown) BMI 30.82 kg/m General Appearance: Well appearing, alert, in no acute distress, well-hydrated, well nourished.. Skin: Skin color, texture, turgor normal, no suspicious rashes or lesions. Head: Normocephalic, no masses, lesions, tenderness or abnormalities. Lungs: Lungs clear to auscultation. No wheezing, rhonchi, rales.. Heart: RRR without murmur, gallop, or rubs. No ectopy. Neurologic: Gait normal. Reflexes normal and symmetric. Sensation grossly intact., Negative findings: speech normal, muscle tone normal, muscle strength normal, reflexes normal and symmetric. Health Maintenance List Hepatitis B Vaccine(1 of 3 - 3-dose series) Never done Hepatitis C Screening Never done HIV Screening Never done Colorectal Cancer Screening Never done HPV Testing due on 12/03/2017 Shingrix Vaccine(1 of 2) Never done Pap Testing due on 04/18/2021 Diabetes Screening due on 12/12/2021 BP Controlled (<130/80) due on 01/10/2022 Depression Assessment Never done Mammogram Screening due on 12/07/2022 Influenza Vaccine(1) due on 12/20/2022 Covid-19 Vaccine(1) due on 07/02/2023 DTaP,Tdap,Td Vaccine(2 - Td or Tdap) due on 09/16/2023 Annual PCP Team Chronic Disease Visit due on 10/22/2023 Lipid Screening due on 12/13/2023 ASSESSMENT/PLAN: 1. Headache, unspecified headache type - ICD9: 784.0, ICD10: R51.9 (primary diagnosis) Tension headache vs ocular migraine. Pt believes tension headache is main DDX and would like to try regimen for this first. Rx for flexeril TID as needed. Pt aware of side effects and to not take prior to work. Consult to headache clinic for further evaluation. Keep follow-up with me in 2 weeks if symptoms are not improving and headache clinic appointment is further out. If no improvement --- will consider ocular migraine regimen and possible anxiety regimen. - CONSULT TO HEADACHE CLINIC - CYCLOBENZAPRINE 10 MG TABLET 2. Dizziness - ICD9: 780.4, ICD10: R42 See above. Extensive cardiac and neuro work-up in hospital unremarkable. RTO in 2 weeks, sooner if needed. Prescription instructions reviewed with patient as applicable. Potential red flag symptoms discussed with the patient. Reviewed appropriate action plan to take if red flag symptoms occur. Patient agreeable to treatment plan. Luis Ayers APRN.PRODUCTION OFFICER [address] [place] [address] documented in this encounter [facility] 01-13-2023 History of Presen t illness Narrative Patient triaged at [facility]. Here today with dizziness/intermittent and need for fmla paperwork. Was seen in ER for dizziness 1 week ago, negative workup. I discussed limitations of [facility]. Will get appointment with pcp. documented in this encounter [facility] 01-09-2023 Miscellaneous Notes Pt informed, verbalized understanding. Radha Solis Yes, please notify patient that fasting labs are ordered Fredrick Stout DO Patient has not had labs done since 2019. Asking if pcp could place orders in lab. Please phone patient to let her know. Pended. documented in this encounter [facility] 01-08-2023 Note Patient Outreach (IN [facility]) ROSAURA MAZA ([id number]) 1970 F Date Time Provider Department 01/08/23 FREDRICK STOUT INTDILCIAN During your visit today, we recorded the following information about you: Allergies As of Date: 01/08/2023 Noted Allergy Reaction ASA (SALICYLATES) 10/25/2005 8 - GI Upset IBUPROFEN 06/11/2021 14 - Other: See Comments Comments: causes GI upset if takes over 200 mg at a time Date Reviewed: 01/07/2023 Reviewed by: Jeanne Pedroza LPN - Fully Assessed Visit Diagnosis:Encounter for screening mammogram for breast cancer [Z12.31] Order(s):[facility] SCREENING [[id number]] Order #: [id number] FUTURE Prescriptions as of 01/13/2023 - diclofenac (VOLTAREN ARTHRITIS PAIN) 1 % topical gel Apply 2 g to affected area three times daily. On right thumb - predniSONE (DELTASONE) 20 mg tablet Take 2 tablets PO daily x 4 days in the morning with breakfast then take 1 tablet PO daily x 4 days with breakfast - predniSONE (DELTASONE) 10 mg tablet 6 tabs po day 1, then 5 tabs day 2, 4 tabs day 3, 3 tabs day 4, 2 tabs day 5, 1 tab day 6. - meloxicam (MOBIC) 15 mg tablet Take 1 tablet by mouth once daily. - lisinopril-hydroCHLOROthiazide (PRINZIDE,ZESTORETIC) 20-12.5 mg per tablet Take 1 tablet by mouth once daily. - iron bis-gly/FA/C/B12/Ca/succ (IRON-150 ORAL) Take by mouth. - cyanocobalamin, vitamin B-12, (VITAMIN B-12 ORAL) Take by mouth. - Cholecalciferol, Vitamin D3, 50 mcg (2,000 unit) cap Take 2,000 Units by mouth once daily. - Zinc 50 mg tab Take 50 mg by mouth once daily. - VITAMIN E ORAL Take by mouth once daily. - MAGNESIUM ORAL Take by mouth once daily. Problem List As Of Date 01/08/2023 Noted Resolved Abnormal mammogram, unspecified [R92.8] 08/27/2010 Family history of heart disease [Z82.49] 08/16/2013 Syncope [R55] 08/16/2013 Dizziness [R42] 08/16/2013 Hypertension [I10] 09/15/2013 Overweight (BMI 25.0-29.9) [E66.3] 02/25/2017 Elevated AST (SGOT) [R74.01] 02/25/2017 Essential hypertension [I10] 02/25/2017 Obesity, Class I, BMI 30-34.9 [E66.9] 05/30/2017 Hypertension, essential [I10] 12/02/2018 Chronic pain of both knees [M25.561, M25.562, G*12/02/2018 Dyslipidemia [E78.5] 12/02/2018 Well adult exam [Z00.00] 01/10/2021 Anemia [D64.9] 01/10/2021 Encounter Status:Closed by EPIC, PRODUSER on 01/13/[address] [facility] 01-07-2023 Note HNO ID: [id number] Author: Margo Calderon APRN.PRODUCTION OFFICER Service: ? Author Type: Nurse Practitioner Type: Progress Notes Filed: 01/07/2023 11:26 AM Note Text: This note was created using NoteWriter. Subjective Rosaura Maza is a 52 year old female with PMH HTN, anemia, and dyslipidemia presents for illness. Acute onset today Endorses that she woke up with headache and visual disturbance of left eye Seeing circles States that she noticed her BP to be elevated Review of Systems Eyes: Positive for visual disturbance. Neurological: Positive for headaches. Objective BP 158/92 Pulse 81 Temp 36.6 ?C (97.8 ?F) (Tympanic) Resp 18 Wt 70.9 kg (156 lb 6.4 oz) LMP (LMP Unknown) SpO2 99% BMI 31.59 kg/m? Physical Exam Assessment and Plan ASSESSMENT/PLAN: 1. Visual disturbance - ICD9: 368.9, ICD10: H53.9 (primary diagnosis) Accompanied with headache and elevated BP. Have referred to ED for advanced imaging to ensure no intracranial process is occurring. Denies EMS 2. Headache, unspecified headache type - ICD9: 784.0, ICD10: R51.9 3. Elevated blood pressure reading - ICD9: 796.2, ICD10: R03.0 Margo Calderon APRN.PRODUCTION OFFICER [facility] 10-21-2022 Note HNO ID: [id number] Author: Kristian Rizvi MD Service: ? Author Type: Physician Type: Progress Notes Filed: 10/21/2022 11:23 AM Note Text: Chief Complaint Patient presents with: Derm Problem: Concerns with moles on right calf due to changes- hx melanoma in family HPI Rosaura Maza is a 52 year old female who presents here today for Above Complaints.. Patient with family history of melanoma with her mother with concerns for 3 moles on her right calf which have grown in size over the last year and become raised. Also has larger mole on her right breast which has been increasing in size over the last 10 years. Denies change in color, crusting, bleeding, lymphadenopathy, night sweats, weight loss. Patient without history of skin cancer. Use to see shank cutter about 10 years ago. Past medical history, appointments, medications, allergies reviewed. Previous Medical History PAST MEDICAL HISTORY Diagnosis Date Hypertension Mild tricuspid regurgitation 08/2013 Vertigo Previous Surgical History PAST SURGICAL HISTORY Procedure Laterality Date BX BREAST PERC VACUUM/ROTN 08/27/10 Right - +mcirocalcifications PAST SURGICAL HISTORY OF breast surgery Lt - benign lump removed Family History FAMILY HISTORY Problem Relation Age of Onset Cancer Mother melanoma Hypertension Mother Heart Brother 40 NE Patient Allergies ALLERGIES Allergen Reactions Asa [Salicylates] GI Upset Ibuprofen Other: See Comments causes GI upset if takes over 200 mg at a time Current Medications Current Outpatient Medications on File Prior to Visit Medication Sig diclofenac (VOLTAREN ARTHRITIS PAIN) 1 % topical gel Apply 2 g to affected area three times daily. On right thumb lisinopril-hydroCHLOROthiazide (PRINZIDE,ZESTORETIC) 20-12.5 mg per tablet Take 1 tablet by mouth once daily. iron bis-gly/FA/C/B12/Ca/succ (IRON-150 ORAL) Take by mouth. cyanocobalamin, vitamin B-12, (VITAMIN B-12 ORAL) Take by mouth. Cholecalciferol, Vitamin D3, 50 mcg (2,000 unit) cap Take 2,000 Units by mouth once daily. Zinc 50 mg tab Take 50 mg by mouth once daily. MAGNESIUM ORAL Take by mouth once daily. predniSONE (DELTASONE) 20 mg tablet Take 2 tablets PO daily x 4 days in the morning with breakfast then take 1 tablet PO daily x 4 days with breakfast (Patient not taking: Reported on 10/21/2022) predniSONE (DELTASONE) 10 mg tablet 6 tabs po day 1, then 5 tabs day 2, 4 tabs day 3, 3 tabs day 4, 2 tabs day 5, 1 tab day 6. (Patient not taking: Reported on 10/21/2022) meloxicam (MOBIC) 15 mg tablet Take 1 tablet by mouth once daily. (Patient not taking: Reported on 10/21/2022) VITAMIN E ORAL Take by mouth once daily. (Patient not taking: Reported on 07/26/2022) No current facility-administered medications on file prior to visit. Social History Social History Tobacco Use Smoking status: Never Smokeless tobacco: Never Vaping Use Vaping Use: Never used Substance Use Topics Alcohol use: Yes Comment: occasional spritzer Drug use: Never Review of Symptoms REVIEW OF SYSTEMS See HI EXAM: BP 116/74 Pulse 66 Resp 16 Wt 69.8 kg (153 lb 12.8 oz) LMP (LMP Unknown) SpO2 98% BMI 31.06 kg/m? General Appearance: Well appearing, alert, in no acute distress, well-hydrated, well nourished.. Skin: 0.5 cm raised mole x3 on right calf which are symmetrical with normal coloration and regular border. 1 cm mole on right breast which is asymmetric with normal color and regular border. Bianca Lacey LPN in to arborist. Lymph Nodes: No cervical lymphadenopathy, No supraclavicular lymphadenopathy, and No axillary lymphadenopathy.. Health Maintenance List HEPATITIS B(1 of 3 - 3-dose series) Never done HEPATITIS C SCREENING Never done HIV SCREENING Never done COLORECTAL CANCER SCREENING Never done HPV TESTING due on 12/03/2017 SHINGRIX VACCINE(1 of 2) Never done PAP TESTING due on 04/18/2021 DIABETES SCREEN due on 12/12/2021 DEPRESSION ASSESSMENT Never done MAMMOGRAM due on 12/07/2022 COVID-19 VACCINE(1) due on 07/02/2023 INFLUENZA(1) due on 12/20/2022 DTAP,TDAP,TD(2 - Td or Tdap) due on 09/16/2023 ANNUAL PCP TEAM CHRONIC DISEASE VISIT due on 10/02/2023 BP CONTROLLED (<130/80) due on 10/02/2023 LIPID SCREEN due on 12/13/2023 ASSESSMENT/PLAN: 1. Atypical mole - ICD9: 216.9, ICD10: D22.9 (primary diagnosis) Referral to dermatology for further evaluation of atypical mole on breast. Patient would like to follow up with brendan bear. Referral order printed to be faxed. - CONSULT TO DERMATOLOGY 2. Numerous skin moles - ICD9: 216.9, ICD10: D22.9 I do not believe her moles on right calf are cancerous at this time. Recommend f/u with derm for evaluation and routine skin checks with family history of melanoma. - CONSULT TO DERMATOLOGY 3. Family history of malignant melanoma - ICD9: V16.8, ICD10: Z80.8 See above. - CONSULT TO DERMATOLOGY Kristian Glasgow (more content not included)... [facility] 10-21-2022 History of Presen t illness Narrative Chief Complaint Patient presents with: Derm Problem: Concerns with moles on right calf due to changes- hx melanoma in family HPI Rosaura Maza is a 52 year old female who presents here today for Above Complaints.. Patient with family history of melanoma with her mother with concerns for 3 moles on her right calf which have grown in size over the last year and become raised. Also has larger mole on her right breast which has been increasing in size over the last 10 years. Denies change in color, crusting, bleeding, lymphadenopathy, night sweats, weight loss. Patient without history of skin cancer. Use to see shank cutter about 10 years ago. Past medical history, appointments, medications, allergies reviewed. Previous Medical History PAST MEDICAL HISTORY Diagnosis Date Hypertension Mild tricuspid regurgitation 08/2013 Vertigo Previous Surgical History PAST SURGICAL HISTORY Procedure Laterality Date BX BREAST PERC VACUUM/ROTN 08/27/10 Right - +mcirocalcifications PAST SURGICAL HISTORY OF breast surgery Lt - benign lump removed Family History FAMILY HISTORY Problem Relation Age of Onset Cancer Mother melanoma Hypertension Mother Heart Brother 40 NE Patient Allergies ALLERGIES Allergen Reactions Asa [Salicylates] GI Upset Ibuprofen Other: See Comments causes GI upset if takes over 200 mg at a time Current Medications Current Outpatient Medications on File Prior to Visit Medication Sig diclofenac (VOLTAREN ARTHRITIS PAIN) 1 % topical gel Apply 2 g to affected area three times daily. On right thumb lisinopril-hydroCHLOROthiazide (PRINZIDE,ZESTORETIC) 20-12.5 mg per tablet Take 1 tablet by mouth once daily. iron bis-gly/FA/C/B12/Ca/succ (IRON-150 ORAL) Take by mouth. cyanocobalamin, vitamin B-12, (VITAMIN B-12 ORAL) Take by mouth. Cholecalciferol, Vitamin D3, 50 mcg (2,000 unit) cap Take 2,000 Units by mouth once daily. Zinc 50 mg tab Take 50 mg by mouth once daily. MAGNESIUM ORAL Take by mouth once daily. predniSONE (DELTASONE) 20 mg tablet Take 2 tablets PO daily x 4 days in the morning with breakfast then take 1 tablet PO daily x 4 days with breakfast (Patient not taking: Reported on 10/21/2022) predniSONE (DELTASONE) 10 mg tablet 6 tabs po day 1, then 5 tabs day 2, 4 tabs day 3, 3 tabs day 4, 2 tabs day 5, 1 tab day 6. (Patient not taking: Reported on 10/21/2022) meloxicam (MOBIC) 15 mg tablet Take 1 tablet by mouth once daily. (Patient not taking: Reported on 10/21/2022) VITAMIN E ORAL Take by mouth once daily. (Patient not taking: Reported on 07/26/2022) No current facility-administered medications on file prior to visit. Social History Social History Tobacco Use Smoking status: Never Smokeless tobacco: Never Vaping Use Vaping Use: Never used Substance Use Topics Alcohol use: Yes Comment: occasional spritzer Drug use: Never Review of Symptoms REVIEW OF SYSTEMS See HI EXAM: BP 116/74 Pulse 66 Resp 16 Wt 69.8 kg (153 lb 12.8 oz) LMP (LMP Unknown) SpO2 98% BMI 31.06 kg/m General Appearance: Well appearing, alert, in no acute distress, well-hydrated, well nourished.. Skin: 0.5 cm raised mole x3 on right calf which are symmetrical with normal coloration and regular border. 1 cm mole on right breast which is asymmetric with normal color and regular border. Bianca Lacey LPN in to arborist. Lymph Nodes: No cervical lymphadenopathy, No supraclavicular lymphadenopathy, and No axillary lymphadenopathy.. Health Maintenance List HEPATITIS B(1 of 3 - 3-dose series) Never done HEPATITIS C SCREENING Never done HIV SCREENING Never done COLORECTAL CANCER SCREENING Never done HPV TESTING due on 12/03/2017 SHINGRIX VACCINE(1 of 2) Never done PAP TESTING due on 04/18/2021 DIABETES SCREEN due on 12/12/2021 DEPRESSION ASSESSMENT Never done MAMMOGRAM due on 12/07/2022 COVID-19 VACCINE(1) due on 07/02/2023 INFLUENZA(1) due on 12/20/2022 DTAP,TDAP,TD(2 - Td or Tdap) due on 09/16/2023 ANNUAL PCP TEAM CHRONIC DISEASE VISIT due on 10/02/2023 BP CONTROLLED (<130/80) due on 10/02/2023 LIPID SCREEN due on 12/13/2023 ASSESSMENT/PLAN: 1. Atypical mole - ICD9: 216.9, ICD10: D22.9 (primary diagnosis) Referral to dermatology for further evaluation of atypical mole on breast. Patient would like to follow up with brendan bear. Referral order printed to be faxed. - CONSULT TO DERMATOLOGY 2. Numerous skin moles - ICD9: 216.9, ICD10: D22.9 I do not believe her moles on right calf are cancerous at this time. Recommend f/u with derm for evaluation and routine skin checks with family history of melanoma. - CONSULT TO DERMATOLOGY 3. Family history of malignant melanoma - ICD9: V16.8, ICD10: Z80.8 See above. - CONSULT TO DERMATOLOGY Kristian Rizvi MD documented in this encounter [facility] 10-01-2022 Note HNO ID: [id number] Author: Fredrick Stout, DO Service: ? Author Type: Physician Type: Progress Notes Filed: 10/01/2022 10:09 AM Note Text: CC: Rosaura Maza is a 52 year old female who presents to the office for thumb symptoms HPI: Right thumb pain, no numbness, pain is sharp and shooting up from thumb to wrist area, no weakness. Worse with prolonged use. 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 Otherwise no known injuries. Has tried tylenol and NSAID PAST MEDICAL HISTORY Diagnosis Date Hypertension Mild tricuspid regurgitation 08/2013 Vertigo PAST SURGICAL HISTORY Procedure Laterality Date BX BREAST PERC VACUUM/ROTN 08/27/10 Right - +mcirocalcifications PAST SURGICAL HISTORY OF breast surgery Lt - benign lump removed Current Outpatient Medications Medication Sig diclofenac (VOLTAREN ARTHRITIS PAIN) 1 % topical gel Apply 2 g to affected area three times daily. On right thumb predniSONE (DELTASONE) 20 mg tablet Take 2 tablets PO daily x 4 days in the morning with breakfast then take 1 tablet PO daily x 4 days with breakfast predniSONE (DELTASONE) 10 mg tablet 6 tabs po day 1, then 5 tabs day 2, 4 tabs day 3, 3 tabs day 4, 2 tabs day 5, 1 tab day 6. meloxicam (MOBIC) 15 mg tablet Take 1 tablet by mouth once daily. lisinopril-hydroCHLOROthiazide (PRINZIDE,ZESTORETIC) 20-12.5 mg per tablet Take 1 tablet by mouth once daily. iron bis-gly/FA/C/B12/Ca/succ (IRON-150 ORAL) Take by mouth. cyanocobalamin, vitamin B-12, (VITAMIN B-12 ORAL) Take by mouth. Cholecalciferol, Vitamin D3, 50 mcg (2,000 unit) cap Take 2,000 Units by mouth once daily. Zinc 50 mg tab Take 50 mg by mouth once daily. VITAMIN E ORAL Take by mouth once daily. (Patient not taking: Reported on 07/26/2022) MAGNESIUM ORAL Take by mouth once daily. No current facility-administered medications for this visit. ALLERGIES Allergen Reactions Asa [Salicylates] GI Upset Ibuprofen Other: See Comments causes GI upset if takes over 200 mg at a time Social History Tobacco Use Smoking status: Never Smokeless tobacco: Never Vaping Use Vaping Use: Never used Substance Use Topics Alcohol use: Yes Comment: occasional spritzer Drug use: Never ROS: See HPI PE: BP 128/68 Pulse 79 Temp 97.6 Resp 12 Ht 4' 11 (1.50m) Wt 151 lb (68.5kg) SpO2 100% BMI 30.48 kg/(m2). Gen: AANDOX3, NAD, non-toxic appearing Skin: No rashes, lesions, or wounds on exposed skin. Right thumb MCP TTP and + Macey's testing right thumb with TTP over right thumb tendon, otherwise normal hand, wrist and elbow exam ASSESSMENT/PLAN: 1. Chronic pain of right thumb - ICD9: 729.5, 338.29, ICD10: M79.644, G89.29 (primary diagnosis) Recommended rest, icing, topical NSAID 3x/day and prednisone, use of thumb spica splint and f/u with Ortho for injection if not improved. - WRIST SPLINT - THUMB SPICA - DICLOFENAC 1 % TOPICAL GEL - PREDNISONE 20 MG TABLET 2. De Quervain's tenosynovitis, right - ICD9: 727.04, ICD10: M65.4 See above - WRIST SPLINT - THUMB SPICA - DICLOFENAC 1 % TOPICAL GEL - PREDNISONE 20 MG TABLET Fredrick Stout DO Return if no improvement. Follow up with Fredrick Stout DO. To ER if develops chest pain, shortness of breath. Discussed risks, benefits, alternatives, and potential side effects of medications. Patient/Guardian expressed understanding and agreed with the plan. See patient instructions. Fredrick Stout, DO [address] [place] [address] [facility] 07-26-2022 Note HNO ID: [id number] Author: Iliana Angeles PA-C Service: ? Author Type: Physician Cable Stretcher And Tester Type: Progress Notes Filed: 07/26/2022 10:54 AM Note Text: Iliana Angeles PA-C Department of Orthopaedics [facility] [address] [place] [address] Dept: [phone] Dept July 26, 2022 CHIEF COMPLAINT: Established Patient and Pain of the Right Elbow Ms. Rosaura Maza is a 52 year old female who presents with pain in her right wrist which has been bothering her for the past several months, pain is a 8 out of 10 aching that is worse with any type of lifting. Patient does a lot of heavy lifting at work. She notes that the wrist pain does not seem to bother her while she is at home doing day-to-day tasks. She was previously seen by Dr. Rhodes and given some exercises for lateral epicondylitis, she continues to do the exercises and they do help with her elbow pain but are not helping with her wrist pain. She denies any locking or catching of the thumb. She is not taking any type of an oral anti-inflammatory, she can take ibuprofen but only in small doses as it gives her GI upset. She is right-hand dominant. ASSESSMENT: M65.4 De Quervain's disease (tenosynovitis) (primary encounter diagnosis) M25.531 Pain in right wrist PLAN: She has some de Quervain's tenosynovitis, we will get her into an [employer] brace that she can wear while at work to slow her down a bit. Would like to put her on a short course of an oral steroid with a low-dose anti-inflammatory. We discussed discontinuing the anti-inflammatory if it does cause any GI upset. The pain persist she can follow-up we will try corticosteroid injection. Ms. Rosaura Maza was advised as to contrast therapies and/or to take analgesics/anti-inflammatories as needed and all contraindications were reviewed. OBJECTIVE: Ms. Rosaura Maza is a pleasant 52 year old in no apparent distress. Gen:There were no vitals taken for this visit. nl development, non obese, no deformities ENT: Normocephalic, normal hearing, moist mucosa CV: Pulses:Radial= 2+ and symmetric, capillary refill < 2 secs, no peripheral edema/varicosities Skin: no rash, bruising or lesions. Good turgor. Psych: cooperative and appropriate, alert and oriented x 3, good mood and affect. Musculoskeletal: Right wrist with swelling of the first dorsal compartment, there is tenderness palpation over the first dorsal compartment. Nontender at the basal joint, nonpainful grind testing. No locking or catching of the thumb with flexion or extension. Thumb is stable to collateral stresses. Positive Macey's testing. Sensations intact to the right hand. Imaging: Deferred today. Supporting Subjective Information Below: Past Surgical History: PAST SURGICAL HISTORY Procedure Laterality Date BX BREAST PERC VACUUM/ROTN 08/27/10 Right - +mcirocalcifications PAST SURGICAL HISTORY OF breast surgery Lt - benign lump removed Medications: Current Outpatient Medications Medication Sig lisinopril-hydroCHLOROthiazide (PRINZIDE,ZESTORETIC) 20-12.5 mg per tablet Take 1 tablet by mouth once daily. iron bis-gly/FA/C/B12/Ca/succ (IRON-150 ORAL) Take by mouth. cyanocobalamin, vitamin B-12, (VITAMIN B-12 ORAL) Take by mouth. Cholecalciferol, Vitamin D3, 50 mcg (2,000 unit) cap Take 2,000 Units by mouth once daily. Zinc 50 mg tab Take 50 mg by mouth once daily. MAGNESIUM ORAL Take by mouth once daily. predniSONE (DELTASONE) 10 mg tablet 6 tabs po day 1, then 5 tabs day 2, 4 tabs day 3, 3 tabs day 4, 2 tabs day 5, 1 tab day 6. meloxicam (MOBIC) 15 mg tablet Take 1 tablet by mouth once daily. VITAMIN E ORAL Take by mouth once daily. (Patient not taking: Reported on 07/26/2022) No current facility-administered medications for this visit. Allergies: Asa [Salicylates] and Ibuprofen ROS: General (negative for fatigue, malaise, weight loss/gain) HEENT (negative for headache, earache, recent vision changes, sinus pain, sore throat) Respiratory (no recent shortness of breath, hemoptysis) CV (negative for chest tightness, palpitations) Musculoskeletal (see HPI) Psych (no depression, anxiety) This note was partially generated using [employer] voice recognition system, and there may be some incorrect words, spellings, and punctuation that were not noted in checking the note before saving. Iliana Angeles PA-C [facility] 07-26-2022 Note HNO ID: [id number] Author: Krys Block Ma Service: ? Author Type: ? Type: Progress Notes Filed: 07/26/2022 10:54 AM Note Text: AMB ROOMING INTAKE FLOWSHEET DATA Pain Pain Level: 8 Pain Location: Arm-Forearm Right Description: Aching Duration Amount of Time: 12 Duration Units: Hours Frequency: Continuous Intervention/Comfort measure: Heat, Massage Patient here today for right wrist pain. She is right hand dominant. [facility] 07-26-2022 History of Presen t illness Narrative Iliana Angeles PA-C Department of Orthopaedics Orthopaedics [address] [facility] [address] Dept: [phone] Dept July 26, 2022 CHIEF COMPLAINT: Established Patient and Pain of the Right Elbow Ms. Rosaura Maza is a 52 year old female who presents with pain in her right wrist which has been bothering her for the past several months, pain is a 8 out of 10 aching that is worse with any type of lifting. Patient does a lot of heavy lifting at work. She notes that the wrist pain does not seem to bother her while she is at home doing day-to-day tasks. She was previously seen by Dr. Rhodes and given some exercises for lateral epicondylitis, she continues to do the exercises and they do help with her elbow pain but are not helping with her wrist pain. She denies any locking or catching of the thumb. She is not taking any type of an oral anti-inflammatory, she can take ibuprofen but only in small doses as it gives her GI upset. She is right-hand dominant. ASSESSMENT: M65.4 De Quervain's disease (tenosynovitis) (primary encounter diagnosis) M25.531 Pain in right wrist PLAN: She has some de Quervain's tenosynovitis, we will get her into an [employer] brace that she can wear while at work to slow her down a bit. Would like to put her on a short course of an oral steroid with a low-dose anti-inflammatory. We discussed discontinuing the anti-inflammatory if it does cause any GI upset. The pain persist she can follow-up we will try corticosteroid injection. Ms. Rosaura Maza was advised as to contrast therapies and/or to take analgesics/anti-inflammatories as needed and all contraindications were reviewed. OBJECTIVE: Ms. Rosaura Maza is a pleasant 52 year old in no apparent distress. Gen:There were no vitals taken for this visit. nl development, non obese, no deformities ENT: Normocephalic, normal hearing, moist mucosa CV: Pulses:Radial= 2+ and symmetric, capillary refill < 2 secs, no peripheral edema/varicosities Skin: no rash, bruising or lesions. Good turgor. Psych: cooperative and appropriate, alert and oriented x 3, good mood and affect. Musculoskeletal: Right wrist with swelling of the first dorsal compartment, there is tenderness palpation over the first dorsal compartment. Nontender at the basal joint, nonpainful grind testing. No locking or catching of the thumb with flexion or extension. Thumb is stable to collateral stresses. Positive Macey's testing. Sensations intact to the right hand. Imaging: Deferred today. Supporting Subjective Information Below: Past Surgical History: PAST SURGICAL HISTORY Procedure Laterality Date BX BREAST PERC VACUUM/ROTN 08/27/10 Right - +mcirocalcifications PAST SURGICAL HISTORY OF breast surgery Lt - benign lump removed Medications: Current Outpatient Medications Medication Sig lisinopril-hydroCHLOROthiazide (PRINZIDE,ZESTORETIC) 20-12.5 mg per tablet Take 1 tablet by mouth once daily. iron bis-gly/FA/C/B12/Ca/succ (IRON-150 ORAL) Take by mouth. cyanocobalamin, vitamin B-12, (VITAMIN B-12 ORAL) Take by mouth. Cholecalciferol, Vitamin D3, 50 mcg (2,000 unit) cap Take 2,000 Units by mouth once daily. Zinc 50 mg tab Take 50 mg by mouth once daily. MAGNESIUM ORAL Take by mouth once daily. predniSONE (DELTASONE) 10 mg tablet 6 tabs po day 1, then 5 tabs day 2, 4 tabs day 3, 3 tabs day 4, 2 tabs day 5, 1 tab day 6. meloxicam (MOBIC) 15 mg tablet Take 1 tablet by mouth once daily. VITAMIN E ORAL Take by mouth once daily. (Patient not taking: Reported on 07/26/2022) No current facility-administered medications for this visit. Allergies: Asa [Salicylates] and Ibuprofen ROS: General (negative for fatigue, malaise, weight loss/gain) HEENT (negative for headache, earache, recent vision changes, sinus pain, sore throat) Respiratory (no recent shortness of breath, hemoptysis) CV (negative for chest tightness, palpitations) Musculoskeletal (see HPI) Psych (no depression, anxiety) This note was partially generated using [employer] voice recognition system, and there may be some incorrect words, spellings, and punctuation that were not noted in checking the note before saving. Iliana Angeles PA-C AMB ROOMING INTAKE FLOWSHEET DATA Pain Pain Level: 8 Pain Location: Arm-Forearm Right Description: Aching Duration Amount of Time: 12 Duration Units: Hours Frequency: Continuous Intervention/Comfort measure: Heat, Massage Patient here today for right wrist pain. She is right hand dominant. documented in this encounter [facility] 07-01-2022 Note HNO ID: [id number] Author: Luis Alcazar APRN.JOVANI Service: ? Author Type: Nurse Practitioner Type: Progress Notes Filed: 07/01/2022 9:15 AM Note Text: Chief Complaint Patient presents with: urgnt care f/up HPI Rosaura Maza is a 52 year old female who presents here today for Above Complaints. Rosaura is an established patient of Dr. Lonnie DO. She is a new patient to me today. Concerns today... Express care follow-up--- Seen at [facility] on 06/27/22 d/t R ear pain. Dx with acute otitis media. Given Augmentin BID x 7 days. Per EC note: no sign of mastoiditis. Some concern for possible early shingles d/t tingling. Currently in office today... Feeling the same as prior. Reports ear pain is slightly improving. Reports intermittent headaches behind R eye and to R side of face x 6 months now. Pt reports this is not new for her. Relief with tylenol. Upset stomach with NSAIDs so she tries to avoid these. Headaches occur about 2-4 x per week, easily relieved currently. Normally gets headaches at work. Pt reports work is very loud. Does report nausea with headaches occasionally. No photosensitivity. Pt denies any slurred speech, one-sided weakness, facial droop, or stroke-like symptoms. Pt denies any rash to area, numbness/tingling sensation, or a shooting/stabbing type pain. Pt herself does not think this is shingles. Past medical history, appointments, medications, allergies reviewed. Previous Medical History PAST MEDICAL HISTORY Diagnosis Date Hypertension Mild tricuspid regurgitation 08/2013 Vertigo Previous Surgical History PAST SURGICAL HISTORY Procedure Laterality Date BX BREAST PERC VACUUM/ROTN 08/27/10 Right - +mcirocalcifications PAST SURGICAL HISTORY OF breast surgery Lt - benign lump removed Family History FAMILY HISTORY Problem Relation Age of Onset Cancer Mother melanoma Hypertension Mother Heart Brother 40 NE Patient Allergies ALLERGIES Allergen Reactions Asa [Salicylates] GI Upset Ibuprofen Other: See Comments causes GI upset if takes over 200 mg at a time Current Medications Current Outpatient Medications on File Prior to Visit Medication Sig amoxicillin-clavulanic acid (AUGMENTIN) 875-125 mg per tablet Take 1 tablet by mouth twice daily for 7 days. lisinopril-hydroCHLOROthiazide (PRINZIDE,ZESTORETIC) 20-12.5 mg per tablet Take 1 tablet by mouth once daily. iron bis-gly/FA/C/B12/Ca/succ (IRON-150 ORAL) Take by mouth. cyanocobalamin, vitamin B-12, (VITAMIN B-12 ORAL) Take by mouth. Cholecalciferol, Vitamin D3, 50 mcg (2,000 unit) cap Take 2,000 Units by mouth once daily. Zinc 50 mg tab Take 50 mg by mouth once daily. VITAMIN E ORAL Take by mouth once daily. MAGNESIUM ORAL Take by mouth once daily. No current facility-administered medications on file prior to visit. Social History Social History Tobacco Use Smoking status: Never Smokeless tobacco: Never Substance Use Topics Alcohol use: Yes Comment: occasional spritzer Drug use: Never REVIEW OF SYSTEMS: as above Reviewed relevant PMHx, PSHx, Social Hx, current medications and allergies. Review of Symptoms REVIEW OF SYSTEMS See HPI. All other systems are negative. EXAM: BP 130/66 (BP Site: Left Arm, BP Position: Sitting, BP Cuff Size: Regular Adult) Pulse 62 Resp 16 Wt 69.3 kg (152 lb 12.8 oz) LMP (LMP Unknown) BMI 30.86 kg/m? General Appearance: Well appearing, alert, in no acute distress, well-hydrated, well nourished.. Skin: Skin color, texture, turgor normal, no suspicious rashes or lesions. Head: Normocephalic, no masses, lesions, tenderness or abnormalities. Eyes: Anicteric sclera. Pupils are equally round and reactive to light. Extraocular movements are intact. . Ears: Positive findings: erythema and edema of ear canal: on right. Nose/Sinuses: Nares normal, septum midline, mucosa normal, no drainage or sinus tenderness. Oropharynx: Lips, mucosa, and tongue normal, teeth and gums normal, oropharynx normal. Neck: Supple, no adenopathy; thyroid symmetric, normal size, no bruits. Back:no pain to palpation of vertebrae, good flexion and extension, good range of motion, no muscle tenderness, reflexes are 2+ and symmetric, motor and sensory appear to be normal, negative SLR test, no evidence of scoliosis Lungs: Lungs clear to auscultation. No wheezing, rhonchi, rales.. Heart: RRR without murmur, gallop, or rubs. No ectopy. Neurologic: Gait normal. Reflexes normal and symmetric. Sensation grossly intact., Negative findings: speech normal, mental status intact, cranial nerves 2-12 intact, gait, including heel, toe, and tandem walking normal, muscle tone normal, rapid alternating movements normal, finger to nose normal, reflexes normal and symmetric. Health Maintenance List HEPATITIS B(1 of 3 - 3-dose series) Never done COVID-19 VACCINE(1) Never done HEPATITIS C SCREENING Never done HIV SCREENING Never done (more content not included)... [facility] 07-01-2022 History of Presen t illness Narrative Chief Complaint Patient presents with: [facility] f/up HPI Rosaura Maza is a 52 year old female who presents here today for Above Complaints. Rosaura is an established patient of Dr. Lonnie DO. She is a new patient to me today. Concerns today... [facility] follow-up--- Seen at [facility] on 06/27/22 d/t R ear pain. Dx with acute otitis media. Given Augmentin BID x 7 days. Per EC note: no sign of mastoiditis. Some concern for possible early shingles d/t tingling. Currently in office today... Feeling the same as prior. Reports ear pain is slightly improving. Reports intermittent headaches behind R eye and to R side of face x 6 months now. Pt reports this is not new for her. Relief with tylenol. Upset stomach with NSAIDs so she tries to avoid these. Headaches occur about 2-4 x per week, easily relieved currently. Normally gets headaches at work. Pt reports work is very loud. Does report nausea with headaches occasionally. No photosensitivity. Pt denies any slurred speech, one-sided weakness, facial droop, or stroke-like symptoms. Pt denies any rash to area, numbness/tingling sensation, or a shooting/stabbing type pain. Pt herself does not think this is shingles. Past medical history, appointments, medications, allergies reviewed. Previous Medical History PAST MEDICAL HISTORY Diagnosis Date Hypertension Mild tricuspid regurgitation 08/2013 Vertigo Previous Surgical History PAST SURGICAL HISTORY Procedure Laterality Date BX BREAST PERC VACUUM/ROTN 08/27/10 Right - +mcirocalcifications PAST SURGICAL HISTORY OF breast surgery Lt - benign lump removed Family History FAMILY HISTORY Problem Relation Age of Onset Cancer Mother melanoma Hypertension Mother Heart Brother 40 NE Patient Allergies ALLERGIES Allergen Reactions Asa [Salicylates] GI Upset Ibuprofen Other: See Comments causes GI upset if takes over 200 mg at a time Current Medications Current Outpatient Medications on File Prior to Visit Medication Sig amoxicillin-clavulanic acid (AUGMENTIN) 875-125 mg per tablet Take 1 tablet by mouth twice daily for 7 days. lisinopril-hydroCHLOROthiazide (PRINZIDE,ZESTORETIC) 20-12.5 mg per tablet Take 1 tablet by mouth once daily. iron bis-gly/FA/C/B12/Ca/succ (IRON-150 ORAL) Take by mouth. cyanocobalamin, vitamin B-12, (VITAMIN B-12 ORAL) Take by mouth. Cholecalciferol, Vitamin D3, 50 mcg (2,000 unit) cap Take 2,000 Units by mouth once daily. Zinc 50 mg tab Take 50 mg by mouth once daily. VITAMIN E ORAL Take by mouth once daily. MAGNESIUM ORAL Take by mouth once daily. No current facility-administered medications on file prior to visit. Social History Social History Tobacco Use Smoking status: Never Smokeless tobacco: Never Substance Use Topics Alcohol use: Yes Comment: occasional spritzer Drug use: Never REVIEW OF SYSTEMS: as above Reviewed relevant PMHx, PSHx, Social Hx, current medications and allergies. Review of Symptoms REVIEW OF SYSTEMS See HPI. All other systems are negative. EXAM: BP 130/66 (BP Site: Left Arm, BP Position: Sitting, BP Cuff Size: Regular Adult) Pulse 62 Resp 16 Wt 69.3 kg (152 lb 12.8 oz) LMP (LMP Unknown) BMI 30.86 kg/m General Appearance: Well appearing, alert, in no acute distress, well-hydrated, well nourished.. Skin: Skin color, texture, turgor normal, no suspicious rashes or lesions. Head: Normocephalic, no masses, lesions, tenderness or abnormalities. Eyes: Anicteric sclera. Pupils are equally round and reactive to light. Extraocular movements are intact. . Ears: Positive findings: erythema and edema of ear canal: on right. Nose/Sinuses: Nares normal, septum midline, mucosa normal, no drainage or sinus tenderness. Oropharynx: Lips, mucosa, and tongue normal, teeth and gums normal, oropharynx normal. Neck: Supple, no adenopathy; thyroid symmetric, normal size, no bruits. Back:no pain to palpation of vertebrae, good flexion and extension, good range of motion, no muscle tenderness, reflexes are 2+ and symmetric, motor and sensory appear to be normal, negative SLR test, no evidence of scoliosis Lungs: Lungs clear to auscultation. No wheezing, rhonchi, rales.. Heart: RRR without murmur, gallop, or rubs. No ectopy. Neurologic: Gait normal. Reflexes normal and symmetric. Sensation grossly intact., Negative findings: speech normal, mental status intact, cranial nerves 2-12 intact, gait, including heel, toe, and tandem walking normal, muscle tone normal, rapid alternating movements normal, finger to nose normal, reflexes normal and symmetric. Health Maintenance List HEPATITIS B(1 of 3 - 3-dose series) Never done COVID-19 VACCINE(1) Never done HEPATITIS C SCREENING Never done HIV SCREENING Never done COLORECTAL CANCER SCREENING Never done HPV TESTING due on 12/03/2017 SHINGRIX VACCINE(1 of 2) Never done PAP TESTING due on 04/18/2021 DIABETES SCREEN due on 12/12/2021 INFLUENZA(1) due on 12/20/2021 BP CONTROLLED (<130/80) due on 01/10/2022 DEPRESSION ASSESSMENT Never done MAMMOGRAM due on 12/07/2022 ANNUAL PCP TEAM CHRONIC DISEASE VISIT due on 03/13/2023 DTAP,TDAP,TD(2 - Td or Tdap) due on 09/16/2023 LIPID SCREEN due on 12/13/2023 ASSESSMENT/PLAN: 1. Acute otitis media, right - ICD9: 382.9, ICD10: H66.91 (primary diagnosis) Improving. Continue antibiotic regimen as prescribed. Pt agreeable. 2. Retro-ocular headaches - ICD9: 784.0, ICD10: R51.9 Continue taking tylenol as needed. Discussed OTC NSAIDs such as ibuprofen with food to alternate with tylenol. Discussed preventative migraine medication options - pt declined at this time d/t easy relief with tylenol currently. RTO if symptoms worsen or become more frequent and bothersome. Pt agreeable. RTO in 3 months, sooner if needed, for routine wellness exam. Prescription instructions reviewed with patient as applicable. Potential red flag symptoms discussed with the patient. Reviewed appropriate action plan to take if red flag symptoms occur. Patient agreeable to treatment plan. Luis Ayers APRN.JOVANI [address] [place] [address] documented in this encounter [facility] 06-27-2022 Note HNO ID: [id number] Author: Melinda Eden APRN.PRODUCTION OFFICER Service: ? Author Type: Nurse Practitioner Type: Progress Notes Filed: 06/27/2022 8:06 AM Note Text: Subjective The history is provided by the patient. No english as a second language teacher was used. HPI Rosaura Maza is a 52 year old female who presents today for CC of lump behind right ear. She felt this over the past 24 hours. She is also states occasionally will feel tingling. She is also having right ear pressure. She has not used any medications. She denies any swelling redness or fever. BP 126/88 Pulse 83 Temp 36.6 ?C (97.8 ?F) (Tympanic) Resp 18 Wt 67.8 kg (149 lb 6.4 oz) LMP (LMP Unknown) SpO2 99% BMI 30.18 kg/m? Social History Tobacco Use Smoking status: Never Smokeless tobacco: Never Substance Use Topics Alcohol use: Yes Comment: occasional spritzer Drug use: Never PAST MEDICAL HISTORY Diagnosis Date Hypertension Mild tricuspid regurgitation 08/2013 Vertigo I have confirmed and edited as necessary, the [facility] Review of Systems Constitutional: Negative for chills and fever. HENT: Positive for ear pain. Negative for congestion, sinus pain and sore throat. Respiratory: Negative for cough, sputum production, shortness of breath and wheezing. Cardiovascular: Negative for chest pain. Musculoskeletal: Negative for myalgias. Neurological: Negative for headaches. Objective Physical Exam Vitals and nursing note reviewed. HENT: Head: Normocephalic and atraumatic. Right Ear: No tenderness. A middle ear effusion is present. There is mastoid tenderness. Tympanic membrane is bulging. Tympanic membrane is not injected. Left Ear: External ear normal. No tenderness. No middle ear effusion. No mastoid tenderness. Tympanic membrane is not injected or bulging. Ears: Comments: No palpable lump or mass, no rash, redness or swelling, on marked area Nose: Nose normal. No mucosal edema, congestion or rhinorrhea. Mouth/Throat: Mouth: Mucous membranes are moist. Pharynx: No oropharyngeal exudate or posterior oropharyngeal erythema. Pulmonary: Effort: Pulmonary effort is normal. Skin: General: Skin is warm and dry. Neurological: Mental Status: She is alert and oriented to person, place, and time. Psychiatric: Mood and Affect: Affect normal. ASSESSMENT/PLAN: 1. Right ear pain - ICD9: 388.70, ICD10: H92.01 (primary diagnosis) No sign of mastoiditis, even though she is tender to touch, no redness swelling No rash noted, possible early shingles with tingling Will schedule follow up with PCP for further workup for continued pain 2. Non-recurrent acute serous otitis media of right ear - ICD9: 381.01, ICD10: H65.01 - Will begin treatment with Augmentin 875 mg PO BID for 7 days - Supportive care with plenty of fluids, rest, and analgesia prn. - Follow up with PCP as needed for re-evaluation Diagnosis and treatment plan were discussed and questions were answered to the patient's satisfaction. Pt acknowledged understanding of concepts and follow up plan. Specific signs and symptoms that would indicate the need for higher level of care were discussed in detail warranting prompt ER evaluation. Melinda Eden APRN.[facility] 06-27-2022 History of Presen t illness Narrative Images from the original note were not included. Subjective The history is provided by the patient. No english as a second language teacher was used. HPI Rosaura Maza is a 52 year old female who presents today for CC of lump behind right ear. She felt this over the past 24 hours. She is also states occasionally will feel tingling. She is also having right ear pressure. She has not used any medications. She denies any swelling redness or fever. BP 126/88 Pulse 83 Temp 36.6 C (97.8 F) (Tympanic) Resp 18 Wt 67.8 kg (149 lb 6.4 oz) LMP (LMP Unknown) SpO2 99% BMI 30.18 kg/m Social History Tobacco Use Smoking status: Never Smokeless tobacco: Never Substance Use Topics Alcohol use: Yes Comment: occasional spritzer Drug use: Never PAST MEDICAL HISTORY Diagnosis Date Hypertension Mild tricuspid regurgitation 08/2013 Vertigo I have confirmed and edited as necessary, the [facility] Review of Systems Constitutional: Negative for chills and fever. HENT: Positive for ear pain. Negative for congestion, sinus pain and sore throat. Respiratory: Negative for cough, sputum production, shortness of breath and wheezing. Cardiovascular: Negative for chest pain. Musculoskeletal: Negative for myalgias. Neurological: Negative for headaches. Objective Physical Exam Vitals and nursing note reviewed. HENT: Head: Normocephalic and atraumatic. Right Ear: No tenderness. A middle ear effusion is present. There is mastoid tenderness. Tympanic membrane is bulging. Tympanic membrane is not injected. Left Ear: External ear normal. No tenderness. No middle ear effusion. No mastoid tenderness. Tympanic membrane is not injected or bulging. Ears: Comments: No palpable lump or mass, no rash, redness or swelling, on marked area Nose: Nose normal. No mucosal edema, congestion or rhinorrhea. Mouth/Throat: Mouth: Mucous membranes are moist. Pharynx: No oropharyngeal exudate or posterior oropharyngeal erythema. Pulmonary: Effort: Pulmonary effort is normal. Skin: General: Skin is warm and dry. Neurological: Mental Status: She is alert and oriented to person, place, and time. Psychiatric: Mood and Affect: Affect normal. ASSESSMENT/PLAN: 1. Right ear pain - ICD9: 388.70, ICD10: H92.01 (primary diagnosis) No sign of mastoiditis, even though she is tender to touch, no redness swelling No rash noted, possible early shingles with tingling Will schedule follow up with PCP for further workup for continued pain 2. Non-recurrent acute serous otitis media of right ear - ICD9: 381.01, ICD10: H65.01 - Will begin treatment with Augmentin 875 mg PO BID for 7 days - Supportive care with plenty of fluids, rest, and analgesia prn. - Follow up with PCP as needed for re-evaluation Diagnosis and treatment plan were discussed and questions were answered to the patient's satisfaction. Pt acknowledged understanding of concepts and follow up plan. Specific signs and symptoms that would indicate the need for higher level of care were discussed in detail warranting prompt ER evaluation. Melinda Eden APRN.JOVANI documented in this encounter [facility] 06-27-2022 Instructions Melinda Eden APRN.CNP - 06/27/2022 7:57 AM EST Start Augmentin Any worsening symptoms - follow up with PCP documented in this encounter [facility] 06-14-2022 Miscellaneous Notes Patient has been identified by name and date of : Yes Requested Prescriptions Pending Prescriptions Disp Refills lisinopril-hydroCHLOROthiazide (PRINZIDE,ZESTORETIC) 20-12.5 mg per tablet 90 tablet 3 Sig: Take 1 tablet by mouth once daily. RX INSTRUCTIONS: Per [facility], they never received prescription dated: 03/03/2022. Please re-submit today. Patient aware RX will be sent to pharmacy. Please call patient. Sandra Lundberg Pss documented in this encounter [facility] 03-13-2022 Note HNO ID: [id number] Author: Marisa Myers APRN.PRODUCTION OFFICER Service: ? Author Type: Nurse Practitioner Type: Progress Notes Filed: 03/13/2022 10:13 AM Note Text: Chief Complaint Patient presents with: Medication Follow-up HPI Rosaura Maza is a 51 year old female who presents here today for Above Complaints. Today: Needs some refills on medications. Would like 90 days of her blood pressure medication. 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 Has hx RA in her family. Past medical history, appointments, medications, allergies reviewed. Previous Medical History PAST MEDICAL HISTORY Diagnosis Date Hypertension Mild tricuspid regurgitation 08/2013 Vertigo Previous Surgical History PAST SURGICAL HISTORY Procedure Laterality Date BX BREAST PERC VACUUM/ROTN 08/27/10 Right - +mcirocalcifications PAST SURGICAL HISTORY OF breast surgery Lt - benign lump removed Family History FAMILY HISTORY Problem Relation Age of Onset Cancer Mother melanoma Hypertension Mother Heart Brother 40 NE Patient Allergies ALLERGIES Allergen Reactions Asa [Salicylates] GI Upset Ibuprofen Other: See Comments causes GI upset if takes over 200 mg at a time Current Medications Current Outpatient Medications on File Prior to Visit Medication Sig iron bis-gly/FA/C/B12/Ca/succ (IRON-150 ORAL) Take by mouth. cyanocobalamin, vitamin B-12, (VITAMIN B-12 ORAL) Take by mouth. lisinopril-hydroCHLOROthiazide (PRINZIDE,ZESTORETIC) 20-12.5 mg per tablet Take 1 tablet by mouth once daily. Cholecalciferol, Vitamin D3, 50 mcg (2,000 unit) cap Take 2,000 Units by mouth once daily. Zinc 50 mg tab Take 50 mg by mouth once daily. VITAMIN E ORAL Take by mouth once daily. MAGNESIUM ORAL Take by mouth once daily. benzonatate (TESSALON PERLES) 100 mg capsule Take 1 capsule by mouth three times daily as needed for cough. (Patient not taking: Reported on 03/13/2022) fluticasone (FLONASE) 50 mcg/actuation nasal spray Use 2 Sprays in each nostril once daily. Rinse mouth after use. No current facility-administered medications on file prior to visit. Social History Social History Tobacco Use Smoking status: Never Smokeless tobacco: Never Substance Use Topics Alcohol use: Yes Comment: occasional spritzer Drug use: Never Review of Symptoms REVIEW OF SYSTEMS See HPI, otherwise negative EXAM: BP 118/82 (BP Site: Left Arm, BP Position: Sitting, BP Cuff Size: Regular Adult) Pulse 78 Resp 16 Wt 69.4 kg (153 lb) LMP 11/09/2018 (Approximate) SpO2 97% BMI 30.90 kg/m? General Appearance: Well appearing, alert, in no acute distress, well-hydrated, well nourished.. Skin: Skin color, texture, turgor normal, no suspicious rashes or lesions. Head: Normocephalic, no masses, lesions, tenderness or abnormalities. Eyes: Anicteric sclera. Pupils are equally round and reactive to light. Extraocular movements are intact. . Ears: External ears normal, canals clear. Nose/Sinuses: Nares normal, septum midline, mucosa normal, no drainage or sinus tenderness. Oropharynx: Lips, mucosa, and tongue normal, teeth and gums normal, oropharynx normal. Neck: Supple, no adenopathy; thyroid symmetric, normal size, no bruits. Lungs: Lungs clear to auscultation. No wheezing, rhonchi, rales.. Heart: RRR without murmur, gallop, or rubs. No ectopy. Abdomen: Normal abdominal exam, Abdomen soft, non-tender. Bowel sounds normal. No masses, organomegaly. Extremities: No deformities, edema, skin discoloration, clubbing or cyanosis. Good capillary refill. . Musculoskeletal: No joint swelling, deformity, or tenderness. Peripheral Pulses: Normal. Neurologic: Gait normal. Reflexes normal and symmetric. Sensation grossly intact.. Lymph Nodes: No cervical lymphadenopathy and No supraclavicular lymphadenopathy. Psychiatric: pleasant, cooperative. Health Maintenance List HEPATITIS B(1 of 3 - 3-dose series) Never done COVID-19 VACCINE(1) Never done HEPATITIS C SCREENING Never done HIV SCREENING Never done COLORECTAL CANCER SCREENING Never done HPV TESTING due on 12/03/2017 SHINGRIX VACCINE(1 of 2) Never done PAP TESTING due on 04/18/2021 DEPRESSION ASSESSMENT Never done DIABETES SCREEN due on 12/12/2021 INFLUENZA(1) due on 12/20/2021 BP CONTROLLED (<130/80) due on 01/10/2022 MAMMOGRAM due on 12/07/2022 ANNUAL PCP TEAM CHRONIC DISEASE VISIT due on 03/13/2023 DTAP,TDAP,TD(2 - Td or Tdap) due on 09/16/2023 LIPID SCREEN due on 12/13/2023 Data reviewed Previous records, office notes ASSESSMENT/PLAN: 1. Well adult exam - ICD9: V70.0, ICD10: Z00.00 (primary diagnosis) - Counseled on healthy diet and regular exercise - Calcium intake with supplements or by diet of 1000 mg/day for under 50, 9790-8553 mg/day for 50+ - RHEUMATOID FACTOR BL - BUNNY BLOOD - C-REACTIVE PROTEIN (CRP) - SED RATE WESTERGREN - CBC - COMP METABOLIC PANEL - IRON + TIBC (more content not included)... [facility] 03-13-2022 History of Presen t illness Narrative Chief Complaint Patient presents with: Medication Follow-up HPI Rosaura Maza is a 51 year old female who presents here today for Above Complaints. Today: Needs some refills on medications. Would like 90 days of her blood pressure medication. 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 Has hx RA in her family. Past medical history, appointments, medications, allergies reviewed. Previous Medical History PAST MEDICAL HISTORY Diagnosis Date Hypertension Mild tricuspid regurgitation 08/2013 Vertigo Previous Surgical History PAST SURGICAL HISTORY Procedure Laterality Date BX BREAST PERC VACUUM/ROTN 08/27/10 Right - +mcirocalcifications PAST SURGICAL HISTORY OF breast surgery Lt - benign lump removed Family History FAMILY HISTORY Problem Relation Age of Onset Cancer Mother melanoma Hypertension Mother Heart Brother 40 NE Patient Allergies ALLERGIES Allergen Reactions Asa [Salicylates] GI Upset Ibuprofen Other: See Comments causes GI upset if takes over 200 mg at a time Current Medications Current Outpatient Medications on File Prior to Visit Medication Sig iron bis-gly/FA/C/B12/Ca/succ (IRON-150 ORAL) Take by mouth. cyanocobalamin, vitamin B-12, (VITAMIN B-12 ORAL) Take by mouth. lisinopril-hydroCHLOROthiazide (PRINZIDE,ZESTORETIC) 20-12.5 mg per tablet Take 1 tablet by mouth once daily. Cholecalciferol, Vitamin D3, 50 mcg (2,000 unit) cap Take 2,000 Units by mouth once daily. Zinc 50 mg tab Take 50 mg by mouth once daily. VITAMIN E ORAL Take by mouth once daily. MAGNESIUM ORAL Take by mouth once daily. benzonatate (TESSALON PERLES) 100 mg capsule Take 1 capsule by mouth three times daily as needed for cough. (Patient not taking: Reported on 03/13/2022) fluticasone (FLONASE) 50 mcg/actuation nasal spray Use 2 Sprays in each nostril once daily. Rinse mouth after use. No current facility-administered medications on file prior to visit. Social History Social History Tobacco Use Smoking status: Never Smokeless tobacco: Never Substance Use Topics Alcohol use: Yes Comment: occasional spritzer Drug use: Never Review of Symptoms REVIEW OF SYSTEMS See HPI, otherwise negative EXAM: BP 118/82 (BP Site: Left Arm, BP Position: Sitting, BP Cuff Size: Regular Adult) Pulse 78 Resp 16 Wt 69.4 kg (153 lb) LMP 11/09/2018 (Approximate) SpO2 97% BMI 30.90 kg/m General Appearance: Well appearing, alert, in no acute distress, well-hydrated, well nourished.. Skin: Skin color, texture, turgor normal, no suspicious rashes or lesions. Head: Normocephalic, no masses, lesions, tenderness or abnormalities. Eyes: Anicteric sclera. Pupils are equally round and reactive to light. Extraocular movements are intact. . Ears: External ears normal, canals clear. Nose/Sinuses: Nares normal, septum midline, mucosa normal, no drainage or sinus tenderness. Oropharynx: Lips, mucosa, and tongue normal, teeth and gums normal, oropharynx normal. Neck: Supple, no adenopathy; thyroid symmetric, normal size, no bruits. Lungs: Lungs clear to auscultation. No wheezing, rhonchi, rales.. Heart: RRR without murmur, gallop, or rubs. No ectopy. Abdomen: Normal abdominal exam, Abdomen soft, non-tender. Bowel sounds normal. No masses, organomegaly. Extremities: No deformities, edema, skin discoloration, clubbing or cyanosis. Good capillary refill. . Musculoskeletal: No joint swelling, deformity, or tenderness. Peripheral Pulses: Normal. Neurologic: Gait normal. Reflexes normal and symmetric. Sensation grossly intact.. Lymph Nodes: No cervical lymphadenopathy and No supraclavicular lymphadenopathy. Psychiatric: pleasant, cooperative. Health Maintenance List HEPATITIS B(1 of 3 - 3-dose series) Never done COVID-19 VACCINE(1) Never done HEPATITIS C SCREENING Never done HIV SCREENING Never done COLORECTAL CANCER SCREENING Never done HPV TESTING due on 12/03/2017 SHINGRIX VACCINE(1 of 2) Never done PAP TESTING due on 04/18/2021 DEPRESSION ASSESSMENT Never done DIABETES SCREEN due on 12/12/2021 INFLUENZA(1) due on 12/20/2021 BP CONTROLLED (<130/80) due on 01/10/2022 MAMMOGRAM due on 12/07/2022 ANNUAL PCP TEAM CHRONIC DISEASE VISIT due on 03/13/2023 DTAP,TDAP,TD(2 - Td or Tdap) due on 09/16/2023 LIPID SCREEN due on 12/13/2023 Data reviewed Previous records, office notes ASSESSMENT/PLAN: 1. Well adult exam - ICD9: V70.0, ICD10: Z00.00 (primary diagnosis) - Counseled on healthy diet and regular exercise - Calcium intake with supplements or by diet of 1000 mg/day for under 50, 9829-7229 mg/day for 50+ - RHEUMATOID FACTOR BL - BUNNY BLOOD - C-REACTIVE PROTEIN (CRP) - SED RATE WESTERGREN - CBC - COMP METABOLIC PANEL - IRON + TIBC - FERRITIN BLD - TSH BLD - HGB A1C - LIPID PANEL BASIC 2. Essential hypertension - ICD9: 401.9, ICD10: I10 - good control - Continue current medication(s) - Recommended regular aerobic exercise. - Goal of BP <130/80 - RHEUMATOID FACTOR BL - BUNNY BLOOD - C-REACTIVE PROTEIN (CRP) - SED RATE WESTERGREN - CBC - COMP METABOLIC PANEL - IRON + TIBC - FERRITIN BLD - TSH BLD - HGB A1C - LIPID PANEL BASIC - LISINOPRIL 20 MG-HYDROCHLOROTHIAZIDE 12.5 MG TABLET 3. Pain in both hands - ICD9: 729.5, ICD10: M79.641, M79.642 - RHEUMATOID FACTOR BL - BUNNY BLOOD - C-REACTIVE PROTEIN (CRP) - SED RATE WESTERGREN 4. Pain in both feet - ICD9: 729.5, ICD10: M79.671, M79.672 - RHEUMATOID FACTOR BL - BUNNY BLOOD - C-REACTIVE PROTEIN (CRP) - SED RATE WESTERGREN 5. Anemia, unspecified type - ICD9: 285.9, ICD10: D64.9 - COMP METABOLIC PANEL - IRON + TIBC - FERRITIN BLD 6. Dyslipidemia - ICD9: 272.4, ICD10: E78.5 - LIPID PANEL BASIC 7. Screening for thyroid disorder - ICD9: V77.0, ICD10: Z13.29 - TSH BLD 8. Screening for diabetes mellitus - ICD9: V77.1, ICD10: Z13.1 - COMP METABOLIC PANEL Marisa Myers APRN.JOVANI documented in this encounter [facility] 03-08-2022 Miscellaneous Notes Spouse notified with information listed below that prescription has been sent to the pharmacy. Winsome Gómez LPN The following approved medication requests have been transmitted electronically. Requested Prescriptions Signed Prescriptions Disp Refills lisinopril-hydroCHLOROthiazide (PRINZIDE,ZESTORETIC) 20-12.5 mg per tablet 90 tablet 0 Sig: Take 1 tablet by mouth once daily. Authorizing Provider: FREDRICK STOUT Ordering User: MARISA MYERS Refused Prescriptions Disp Refills lisinopril-hydroCHLOROthiazide (PRINZIDE,ZESTORETIC) 20-12.5 mg per tablet 90 tablet 3 Sig: Take 1 tablet by mouth once daily. Refused By: FREDRICK STOUT Reason for Refusal: Patient needs appointment Marisa Myers APRN.PRODUCTION OFFICER Spoke with pt's and pt has booked apt for 03-12-22. They are asking for medication refill to get her to the apt. Please advise spouse. Winsome Gómez LPN Patient needs appt, hasn't been seen in >1 year Fredrick Stout DO Patient's spouse is asking to be notified when prescription has been sent to pharmacy. Patient has been identified by name and date of : Yes Patient's spouse is asking to be notified when prescription has been sent to pharmacy Last office visit in this department: 01/09/2021 Labs-10/25/19 NOV-none med filled 01/09/21 RX INSTRUCTIONS: Patient aware RX will be sent to pharmacy. No need to notify patient. Patient phones requesting refills as follows: Requested Prescriptions Pending Prescriptions Disp Refills lisinopril-hydroCHLOROthiazide (PRINZIDE,ZESTORETIC) 20-12.5 mg per tablet 90 tablet 3 Sig: Take 1 tablet by mouth once daily. Please review and advise. Tanya Arreola Pss documented in this encounter [facility] 12-08-2021 Miscellaneous Notes December 08, 2021 PID: [id number] Rosaura Maza [address] [place] [id number] Dear Ms. Maza, We are pleased to inform you that the results of your recent breast imaging exam on 12/07/2021 are normal. Your mammogram demonstrates that you have dense breast tissue, which could hide abnormalities. Dense breast tissue, in and of itself, is a relatively common condition. Therefore, this information is not provided to cause undue concern; rather, it is to ra ise your awareness and promote discussion with your health care provider regarding the presence of dense breast tissue in addition to other risk factors. Early detection of cancer is very important. We also understand recommendations regarding breast cancer screening are controversial. Please discuss with your primary care provider which strategy is best for you and whether a mammogram is right for you. Your imaging studies and report will be kept on file at [facility] as part of your permanent medical record and are available for your continuing care. Thank you for allowing us to help in meeting your health care needs. Sincerely, Dr. Ibrahim Interpreting Radiologist [facility] (Normal over 40) documented in this encounter [facility] 12-07-2021 History of Presen t illness Narrative Radiology Service Progress Note PATIENT NAME: Rosaura Maza DATE OF SERVICE: December 07, 2021 TIME: 2:51 PM PATIENT IDENTITY VERIFICATION COMPLETED USING TWO (2) IDENTIFIERS: Name and Date of confirmed by patient verbally. FALL SCREENING: Has the patient had 2 falls in the last year or 1 fall with injury or currently using an Ambulatory Assistive Device (Walker, Cane, Wheelchair, Crutches, etc.)? No PATIENT GENDER DATA: Female. status: : No status: NO. PATIENT RELEVANT IMPLANT DATA REVIEWED: Not Applicable RADIOLOGY DEPARTMENT: Mammography PERIPHERAL IV DATA: Not applicable SIGNED BY: RT Aurelio(R) December 07, 2021 2:51 PM documented in this encounter [facility] 06-11-2021 History of Presen t illness Narrative Lazaro Arreola MD Department of Orthopaedics Orthopaedics [address] [place] [address] Dept: [phone] Dept June 11, [address] Stout for an opinion regarding right elbow pain. My final recommendations will be communicated back to the requesting physician by way of shared Medical record or letter to requesting physician via US mail. CHIEF COMPLAINT: New of the Right Forearm and right forearm tendonitis (REF: Lonnie) HPI Pt. presents with one month hx of right forearm tendonitis, which has resolved this week while on vacation. She recently changed job positions at [employer], and lifts 20 lb parts, 100 per day, which is more strenuous than prior position. She is right hand dominant. She has tried ibuprofen 200 mg every 6 hours, which does not provide much relief. She is right hand dominant. She went to chiropractor, who placed pressure on her right upper arm and it went away. AMB ROOMING INTAKE FLOWSHEET DATA Risk Screening Do you have concerns about personal safety or safety in the home?: No Pain Pain Level: (0-10) Description: Sharp Duration Amount of Time: 1 Duration Units: Months Frequency: Intermittent Intervention/Comfort measure: Medication Comments: ibuprofen 200 mg every 6 hours ASSESSMENT: M77.11 Lateral epicondylitis of right elbow (primary encounter diagnosis) M25.521 Elbow pain, right PLAN: WE discussed treatment options. She would like to try a stretching program, topical NSAIDs, and she may consider a cortisone injection. Cock up brace to relax the forearm. FOLLOW UP INSTRUCTIONS: As needed. Ms. Rosaura Maza was advised as to contrast therapies and/or to take analgesics/anti-inflammatories as needed and all contraindications were reviewed. OBJECTIVE: Ms. Rosaura Maza is a pleasant 51 year old in no apparent distress. Gen:Ht 4' 11 [stated[ (1.50m) Wt 135 lb (61.2kg) LMP 11/09/2018 BMI 27.25 kg/(m^2). nl development, non obese, no deformities ENT: Normocephalic, normal hearing, moist mucosa CV: Pulses:Radial= 2+ and symmetric, capillary refill < 2 secs, no peripheral edema/varicosities Skin: no rash, bruising or lesions. Good turgor. Psych: cooperative and appropriate, alert and oriented x 3, good mood and affect. Musculoskeletal: TTP at the lateral elbow. Full ROM. Pain on resisted elbow, wrist, and middle finger extension. IMAGING: Deferred today Supporting Subjective Information Below: Past Medical History: PAST MEDICAL HISTORY Diagnosis Date Hypertension Mild tricuspid regurgitation 08/2013 Vertigo Past Surgical History: PAST SURGICAL HISTORY Procedure Laterality Date BX BREAST PERC VACUUM/ROTN 08/27/10 Right - +mcirocalcifications PAST SURGICAL HISTORY OF breast surgery Lt - benign lump removed Family History: FAMILY HISTORY Problem Relation Age of Onset Cancer Mother melanoma Hypertension Mother Heart Brother 40 NE Social History: Social History Tobacco Use Smoking status: Never Smoker Smokeless tobacco: Never Used Substance Use Topics Alcohol use: Yes Comment: occasional spritzer Drug use: Never Medications: Current Outpatient Medications Medication Sig benzonatate (TESSALON PERLES) 100 mg capsule Take 1 capsule by mouth three times daily as needed for cough. lisinopril-hydroCHLOROthiazide (PRINZIDE,ZESTORETIC) 20-12.5 mg per tablet Take 1 tablet by mouth once daily. fluticasone (FLONASE) 50 mcg/actuation nasal spray Use 2 Sprays in each nostril once daily. Rinse mouth after use. VITAMIN E ORAL Take by mouth once daily. MAGNESIUM ORAL Take by mouth once daily. No current facility-administered medications for this visit. Allergies: Asa [Salicylates] and Ibuprofen ROS: General (negative for fatigue, malaise, weight loss/gain) HEENT (negative for headache, earache, recent vision changes, sinus pain, sore throat) Respiratory (no recent shortness of breath, hemoptysis) CV (negative for chest tightness, palpitations) Musculoskeletal (see HPI) Psych (no depression, anxiety) REFERRING PHYSICIAN: Ms. Rosaura Maza was referred to sd for consultation by the following physician. This consultation note will be sent to the following physician by either mail or electronic medical record. Fredrick Stout [address] [facility] [address] Fredrick Stout DO [address] [facility] [address] Lazaro Arreola MD documented in this encounter [facility] Diagnosis Encounter for screening mammogram for breast cancer [facility] Diagnosis Essential hypertension Unspecified essential hypertension [facility] Diagnosis Well adult exam- Primary Routine general medical examination at a health care facility Essential hypertension Unspecified essential hypertension Pain in both hands Pain in both feet Pain in limb Anemia, unspecified type Dyslipidemia Other and unspecified hyperlipidemia Screening for thyroid disorder Screening for diabetes mellitus [facility] Diagnosis Essential hypertension Unspecified essential hypertension [facility] Diagnosis Right ear pain- Primary Otalgia, unspecified Non-recurrent acute serous otitis media of right ear [facility] Diagnosis Acute otitis media, right- Primary Unspecified otitis media Retro-ocular headaches [facility] Diagnosis De Quervain's disease (tenosynovitis)- Primary Radial styloid tenosynovitis Pain in right wrist Pain in joint, forearm [facility] Diagnosis Atypical mole- Primary Benign neoplasm of skin, site unspecified Numerous skin moles Family history of malignant melanoma Family history of other specified malignant neoplasm [facility] Diagnosis Well adult exam- Primary Routine general medical examination at a health care facility Dyslipidemia Other and unspecified hyperlipidemia [facility] Diagnosis Encounter for screening mammogram for breast cancer documented in this encounter [facility] note* Diagnosis Dizzy- Primary Dizziness and giddiness [facility] Diagnosis Headache, unspecified headache type- Primary Dizziness Dizziness and giddiness documented [facility]* Diagnosis Hospital discharge follow-up- Primary Other follow-up examination Headache, unspecified headache type Hypertension, essential Unspecified essential hypertension documented in this encounter [facility] for referral (narrative)* Diagnostic Procedure Only (Routine) - Closed Specialty Diagnoses / Procedures Referred By Sandeep crowley Referred To Contact [facility] Diagnoses Encounter for screening mammogram for breast cancer Procedures SAM SCREENING SCREENING MAMMOGRAPHY BI 2-VIEW BREAST INC Fredrick Solis, DO [address] [place] [address] [facility] [address] [place] [address] Referral ID Status Reason Start Date Expiration Date V isits Requested Visits Authorized [id number] Closed Auto-Generate d Referral 12/07/2021 04/20/2022 1 1 [facility] for referral (narrative)* Diagnostic Procedure Only (Routine) - Pending Review Specialty Diagnoses / Procedures Referred By Contac t Referred To Contact [facility] Diagnoses Encounter for screening mammogram for breast cancer Procedures SAM SCREENING SCREENING MAMMOGRAPHY BI 2-VIEW BREAST INC CAD Fredrick Stout, DO [address] [place] [address] [facility] [address] [place] [address] Referral ID Status Reason Start Date Expiration Date Visits Requested Visits Authorized [id number] Pending Review Auto-Generat ed Referral 01/08/2023 02/07/2024 1 1 [facility] for visit Narrative* Diagnostic Procedure Only (Routine) - Closed Specialty Diagnoses / Procedures Referred By Contac t Referred To Contact [facility] Diagnoses Encounter for screening mammogram for breast cancer Procedures SAM SCREENING SCREENING MAMMOGRAPHY BI 2-VIEW BREAST INC CAD Fredrick Stout, DO [address] [place] [address] [facility] [address] [place] [address] Referral ID Status Reason Start Date Expiration Date V isits Requested Visits Authorized [id number] Closed Auto-Generate d Referral 12/07/2021 04/20/2022 1 1 [facility] Reason for Referral Specialty Diagnoses / Procedures Referred By Contac t Referred To Contact Dermatology Diagnoses Atypical mole Numerous skin moles Family history of malignant melanoma Procedures CONSULT TO DERMATOLOGY Kristian Rizvi MD [address] [place] [address] Referral ID Status Reason Start Date Expiration Date Visits Requested Visits Authorized [id number] Ref Not Required PCP Requested Referral 10/21/2022 10/21/2023 1 1 Specialty Diagnoses / Procedures Referred By Contac t Referred To Contact Diagnoses Headache, unspecified headache type Procedures CONSULT TO HEADACHE CLINIC OFFICE/OUTPATIENT NEW HIGH MDM 60-74 MINUTES Luis Alcazar APRN.PRODUCTION OFFICER [address] [place] [address] Referral ID Status Reason Start Date Expiration Date Visits Requested Visits Authorized [id number] Pending Review PCP Requested Referral 01/13/2023 01/13/2024 1 1 Summary Purpose Family History No Family History Records Found Advance Directives No Advanced Directives Records Found Additional Source Comments Source Comments (unrecognize d section and content) In the event this informatio n is protected by the Federal Confidentiality of Alcohol and Drug Abuse Patient Records regulations: The Federal rules restrict any use of the information to criminally investigate or prosecute any alcohol or drug abuse patient.[facility] the event this information is protected by the Federal Confidentiality of Alcohol and Drug Abuse Patient Records regulations: The Federal rules restrict any use of the information to criminally investigate or prosecute any alcohol or drug abuse patient.[facility] the event this information is protected by the Federal Confidentiality of Alcohol and Drug Abuse Patient Records regulations: The Federal rules restrict any use of the information to criminally investigate or prosecute any alcohol or drug abuse patient.[facility] the event this information is protected by the Federal Confidentiality of Alcohol and Drug Abuse Patient Records regulations: The Federal rules restrict any use of the information to criminally investigate or prosecute any alcohol or drug abuse patient.[facility] the event this information is protected by the Federal Confidentiality of Alcohol and Drug Abuse Patient Records regulations: The Federal rules restrict any use of the information to criminally investigate or prosecute any alcohol or drug abuse patient.[facility] the event this information is protected by the Federal Confidentiality of Alcohol and Drug Abuse Patient Records regulations: The Federal rules restrict any use of the information to criminally investigate or prosecute any alcohol or drug abuse patient.[facility] the event this information is protected by the Federal Confidentiality of Alcohol and Drug Abuse Patient Records regulations: The Federal rules restrict any use of the information to criminally investigate or prosecute any alcohol or drug abuse patient.[facility] the event this information is protected by the Federal Confidentiality of Alcohol and Drug Abuse Patient Records regulations: The Federal rules restrict any use of the information to criminally investigate or prosecute any alcohol or drug abuse patient.[facility] the event this information is protected by the Federal Confidentiality of Alcohol and Drug Abuse Patient Records regulations: The Federal rules restrict any use of the information to criminally investigate or prosecute any alcohol or drug abuse patient.[facility] the event this information is protected by the Federal Confidentiality of Alcohol and Drug Abuse Patient Records regulations: The Federal rules restrict any use of the information to criminally investigate or prosecute any alcohol or drug abuse patient.[facility] the event this information is protected by the Federal Confidentiality of Alcohol and Drug Abuse Patient Records regulations: The Federal rules restrict any use of the information to criminally investigate or prosecute any alcohol or drug abuse patient.[facility] the event this information is protected by the Federal Confidentiality of Alcohol and Drug Abuse Patient Records regulations: The Federal rules restrict any use of the information to criminally investigate or prosecute any alcohol or drug abuse patient.[facility] the event this information is protected by the Federal Confidentiality of Alcohol and Drug Abuse Patient Records regulations: The Federal rules restrict any use of the information to criminally investigate or prosecute any alcohol or drug abuse patient.[facility] the event this information is protected by the Federal Confidentiality of Alcohol and Drug Abuse Patient Records regulations: The Federal rules restrict any use of the information to criminally investigate or prosecute any alcohol or drug abuse patient.[facility] the event this information is protected by the Federal Confidentiality of Alcohol and Drug Abuse Patient Records regulations: The Federal rules restrict any use of the information to criminally investigate or prosecute any alcohol or drug abuse patient.[facility] the event this information is protected by the Federal Confidentiality of Alcohol and Drug Abuse Patient Records regulations: The Federal rules restrict any use of the information to criminally investigate or prosecute any alcohol or drug abuse patient.[facility] Reason for Visit (unrecogniz ed section and content) Specialty Diagnoses / Procedures Referred By Sandeep crowley Referred To Contact Orthopedics / ORTHOPAEDIC SURGERY Diagnoses Pain in right elbow Right elbow pain [M25.521] Procedures OFFICE/OUTPATIENT NEW MODERATE MDM 45-59 MINUTES NICA SENG DAMIAN/Fredrick Hinton DO [address] [place] [address] Lazaro Arreola MD [address] [place] [address] Referral ID Status Reason Start Date Expiration Date Visits Re quested Visits Authorized [id number] Closed 06/01/2021 04/20/2022 1 1 Reason Onset Date Comments Refill Request 03/06/2022 Reason Comments Medication Follow-up Specialty Diagnoses / Procedures Referred By Sandeep crowley Referred To Contact Family Medicine / FAMILY MEDICINE Diagnoses Follow-up examination follow up Procedures OFFICE/OUTPATIENT ESTABLISHED MOD MDM 30-39 MIN 4C EST Marisa Myers APRN.PRODUCTION OFFICER [address] [place] [address] Marisa Myers APRN.PRODUCTION OFFICER [address] [place] [address] Referral ID Status Reason Start Date Expiration Date Visits Re quested Visits Authorized [id number] Closed 03/13/2022 04/20/2022 1 1 Reason Onset Date Comments Refill Request 06/14/2022 PROBLEM WITH PRE SCRIPTION Reason Comments Ear Problem Pt reported lump loc ated behind (RT) ear intermittent pain, tingling, x4 days. Specialty Diagnoses / Procedures Referred By Contac t Referred To Contact [facility] / [facility] Diagnoses Ear lump, right lump behind right ear Procedures OFFICE/OUTPATIENT ESTABLISHED MOD MDM 30-39 MIN EST SAME DAY Self [facility] [address] [place] [address] Referral ID Status Reason Start Date Expiration Date Visits Re quested Visits Authorized [id number] Closed 06/27/2022 04/20/2023 1 1 Reason Comments urgnt care f/up Specialty Diagnoses / Procedures Referred By Contac t Referred To Contact Family Medicine / FAMILY MEDICINE Diagnoses UC follow up Procedures 4C EST Self Luis Alcazar APRN.PRODUCTION OFFICER [address] [place] [address] Referral ID Status Reason Start Date Expiration Date Visits Re quested Visits Authorized [id number] Closed 07/01/2022 04/20/2023 1 1 Reason Comments Established Patient Pain Specialty Diagnoses / Procedures Referred By Contac t Referred To Contact Orthopedics / ORTHOPAEDIC SURGERY Diagnoses Elbow pain rt elbow pain again Procedures OFFICE/OUTPATIENT ESTABLISHED MOD MDM 30-39 MIN NICA ESTABLISH Self Iliana Angeles PA-C [address] [place] [address] Referral ID Status Reason Start Date Expiration Date Visits Re quested Visits Authorized [id number] Closed 07/26/2022 04/20/2023 1 1 Reason Comments Derm Problem Concerns with moles on right calf due to changes- hx melanoma in family Specialty Diagnoses / Procedures Referred By Contac t Referred To Contact Family Medicine / FAMILY MEDICINE Diagnoses Examination right calf 3 spots to be checked Procedures OFFICE/OUTPATIENT ESTABLISHED MOD MDM 30-39 MIN 4C EST Kristian Rizvi MD [address] [place] [address] Kristian Rizvi MD [address] [place] [address] Referral ID Status Reason Start Date Expiration Date Visits Re quested Visits Authorized [id number] Closed 10/21/2022 04/20/2023 1 1 Reason Comments Lab Orders Reason Comments follow up from urgent care h igh b/p was sent to er Pt states they kep t her a coup[le days. Deshaun she states is still dizzy and stomach gets upset. Needs a note for missing work. Specialty Diagnoses / Procedures Referred By Sandeep crowely Referred To Contact Family Medicine / FAMILY MEDICINE Diagnoses Follow-up exam follow Procedures OFFICE/OUTPATIENT ESTABLISHED MOD MDM 30-39 MIN 4C EST Self Fredrick Stout DO [address] [place] [address] Referral ID Status Reason Start Date Expiration Date Visits Re quested Visits Authorized [id number] Closed 10/01/2022 04/20/2023 1 1 Reason Comments Hospital F/U Reason Comments Disability paperwork Care Teams (unrecognized sec tion and content) Chairman Ceo Relationship Specialty Start Date End Date Fredrick Stout DO [address] [place] [address] PCP - General Family Practice 12/15/13 Chairman Ceo Relationship Specialty Start Date End Date Fredrick Stout DO [address] [place] [address] PCP - General Family Practice 12/15/13 Chairman Ceo Relationship Specialty Start Date End Date Ferdrick Stout DO [address] [place] [address] PCP - General Family Medicine 12/15/13 Chairman Ceo Relationship Specialty Start Date End Date Fredrick Stout DO [address] [place] [address] PCP - General Family Medicine 12/15/13 Chairman Ceo Relationship Specialty Start Date End Date Fredrick Stout, DO [address] [place] [address] PCP - General Family Medicine 12/15/13 Chairman Ceo Relationship Specialty Start Date End Date Fredrick Stout, DO [address] [place] [address] PCP - General Family Medicine 12/15/13 Chairman Ceo Relationship Specialty Start Date End Date Fredrick Stout, DO [address] [place] [address] PCP - General Family Medicine 12/15/13 Chairman Ceo Relationship Specialty Start Date End Date Fredrick Stout, DO [address] [place] [address] PCP - General Family Medicine 12/15/13 Chairman Ceo Relationship Specialty Start Date End Date Fredrick Stout, DO [address] [place] [address] PCP - General Family Medicine 12/15/13 Chairman Ceo Relationship Specialty Start Date End Date Fredrick Stout DO [address] [place] [address] PCP - General Family Medicine 12/15/13 Chairman Ceo Relationship Specialty Start Date End Date Fredrick Stout DO [address] [place] [address] PCP - General Family Medicine 12/15/13 Chairman Ceo Relationship Specialty Start Date End Date Fredrick Stout DO [address] [place] [address] PCP - General Family Medicine 12/15/13 Chairman Ceo Relationship Specialty Start Date End Date Fredrick Stout DO [address] [place] [address] PCP - General Family Medicine 12/15/13 Chairman Ceo Relationship Specialty Start Date End Date Fredrick Stout DO [place] [address] [place] [address] PCP - General [facility] 12/15/13 Chairman Ceo Relationship Specialty Start Date End Date StoutFredrick carmen [place], [address] [place] [address] PCP - General Family Medicine 12/15/13 INFORMATION SOURCE (unrecogn ized section and content) FOR RECORDS PERTAINING TO PATIENTS WHO ARE OR HAVE BEEN ENROLLED IN A CHEMICAL DEPENDENCY/SUBSTANCEABUSE PROGRAM, SOME INFORMATION MAY BE OMITTED. This clinical summary was aggregated from multiple sources. Caution should be exercised in using it in the provision of clinical care. This summary normalizes information from multiple sources, and as a consequence, information in this document may materially change the coding, format and clinical context of patient data. In addition, data may be omitted in some cases. CLINICAL DECISIONS SHOULD BE BASED ON THE PRIMARY CLINICAL RECORDS. [facility] [employer] [facility]. provides no warranty or guarantee of the accuracy or completeness of information in this document.
--- NOTE | 2023-04-19 00:02 | CT_ITS ---
INDICATION: hematuria w/ left flank pain EXAMINATION: CT ABDOMEN AND PELVIS WITHOUT CONTRAST - CT Abdomen And Pelvis W/O Contrast Injection TECHNIQUE: Helically acquired images were obtained of the abdomen and pelvis without oral or IV contrast. A radiation dose optimization technique was used for this scan. IV Contrast dosage and agent: None. Oral contrast: None. COMPARISON: None. FINDINGS: LOWER CHEST: Lung bases are clear. No cardiomegaly or pericardial effusion. LIVER: Homogeneous. No focal mass. GALLBLADDER AND BILIARY TREE: No calcified gallstones. No gallbladder distension or wall edema. No intra- or extrahepatic biliary ductal dilation. PANCREAS: No focal cystic or solid mass. SPLEEN: Normal size without focal cystic or solid mass. ADRENAL GLANDS: No nodules. KIDNEYS AND URETERS: Normal renal size and position. No hydronephrosis. No perinephric inflammation. No nephrolithiasis. PERITONEUM: No ascites or free air. No other fluid collection. BOWEL: Normal appendix. No stomach or bowel distension. No focal inflammatory change. LYMPH NODES: No enlarged mesenteric or retroperitoneal lymph nodes. VESSELS: Aorta is non-dilated. URINARY BLADDER: Mild perivesical inflammatory stranding. Bladder is nondistended.. REPRODUCTIVE ORGANS: Unremarkable uterus and adnexa ABDOMINAL WALL: No discrete abdominal or pelvic wall hernia. BONES: No lytic or blastic abnormality. CT/Abdomen/Pelvis without Cont IMPRESSION: Perivesical inflammation concerning for cystitis. No nephrolithiasis or acute renal finding. [Please note CT is not excluded clinical pyelonephritis.. Mild hepatomegaly. Electronically Signed: Jayce Lemus MD at 1:25 EST ,
[2023-04-19 00:51] VITALS: BP 136/76; PULSE 89; RESP 15; O2SAT 98
[2023-04-19] MEDS: Phenazopyridine 95 MG Tablet 190 MG PO (01:59)
[2023-04-19] MEDS: Smz/Tmp Ds Tablet 1 TABLET PO (02:00)
[2023-04-19 02:02] VITALS: PULSE 69; RESP 17; O2SAT 98
== END 2023-04-19 02:02 | disposition home or self-care (01) ==
PROVIDERS: Emergency Provider Emergency Medicine; PCP Student in an Organized Health Care Education/Training Program; Referring Provider Emergency Medicine; Visit Provider Emergency Medicine
DX: N30.91 Cystitis, unspecified with hematuria (principal); I10 Essential (primary) hypertension; Z79.899 Other long term (current) drug therapy
CPT/HCPCS: 74176; 81001; 99283